=== PATIENT | female | born 1945 | race Caucasian/White ===

== ENCOUNTER 2016-12-26 12:48 | Emergency (ER) | payer MEDICARE, OTHER ==
[2016-12-26] MEDS ORDERED: IPRATROPIUM-ALBUTEROL 3 ML NEB INHALATION STA (13:28)
--- NOTE | 2016-12-26 13:32 | ED ---
General Adult HPI - General Chief complaint: Shortness of Breath Stated complaint: Asthma Attack Time Seen by Provider: 12/26/16 13:16 Source: patient, RN notes reviewed, old records reviewed Mode of arrival: ambulatory Limitations: no limitations - History of Present Illness Initial comments: Chief complaint and history of present illness a 71-year-old female with complaint of asthma attack. Ongoing for several days. She ran out of her medications recently. Denies a fever productive cough. No chest pain. - Related Data Home Medications Medication Instructions Recorded Confirmed Albuterol Inhaler [Ventolin Hfa 2 puff INHALATION RT-Q6H PRN 08/28/15 12/26/16 Inhaler] Budesonide-Formot 160-4.5 Mcg 2 puff INHALATION RT-BID 08/28/15 12/26/16 [Symbicort 160-4.5 Mcg Inhaler] Albuterol Nebulized [Ventolin 2.5 mg INHALATION RT-Q4H PRN 12/26/16 12/26/16 Nebulized] Fexofenadine HCl [Children's 60 mg PO DAILY PRN 12/26/16 12/26/16 Valeria Susp] Multivitamin [Multivitamins Adult 1 tab PO DAILY 12/26/16 12/26/16 Gummies] Previous Rx's Medication Instructions Recorded Albuterol Inhaler [Ventolin Hfa 1 - 2 puff INHALATION Q6HR PRN #1 12/26/16 Inhaler] inhaler Budesonide/Formoterol Fumarate 2 puff INHALATION BID #1 inhaler 12/26/16 [Symbicort 80-4.5 Mcg Inhaler] Lisinopril [Zestril] 5 mg PO DAILY #60 tab 12/26/16 Allergies Allergy/AdvReac Type Severity Reaction Status Date / Time No Known Allergies Allergy Verified 12/26/16 13:35 Review of Systems ROS Statement: Those systems with pertinent positive or pertinent negative responses have been documented in the HPI. Review of systems. No visual acuity changes no complaint headache no chest pain she has slight wheeze. Occasionally short of breath. No cough. Abdominal pain no nausea no vomiting no neuro deficits. All systems are reviewed. Past medical problems significant for asthmaCOPD, hypertension and seasonal ALLERGIES. Patient reports her current seasonal ALLERGIES or bilaterally. She does take Valeria which does help quite a bit. Patient denies any surgeries. Family history does not include any cancers. Patient has ALLERGIES to seasonal things. Denies smoking denies drinking. ROS Other: All systems not noted in ROS Statement are negative. Past Medical History Past Medical History: Asthma, COPD, Hypertension Additional Past Medical History / Comment(s): seasonal allergies. History of Any Multi-Drug Resistant Organisms: None Reported Past Surgical History: No Surgical Hx Reported Past Psychological History: No Psychological Hx Reported Smoking Status: Never smoker Past Alcohol Use History: None Reported Past Drug Use History: None Reported General Exam - General Exam Comments Initial Comments: General: The patient is awake and alert, in no distress, and does not appear acutely ill. Chief complain of asthma symptoms. Vital signs are temperature 90.1 pulse 96 respiratory rate 20 pulse ox 95% room air blood pressure 202/95. This be rechecked and treated. Eye: Pupils are equal, round and reactive to light, extra-ocular movements are intact ; there is normal conjunctiva bilaterally. No signs of icterus. Ears, nose, mouth and throat: There are moist mucous membranes and no oral lesions. Neck: The neck is supple, there is no tenderness , no anterior cervical lymphadenopathy, thyroid not enlarged.. Cardiovascular: There is a regular rate and rhythm. No murmur, rub or gallop is appreciated. Respiratory: Lungs are clear to auscultation, respirations 18 wheeze on forced expiration. Gastrointestinal: Soft, non-distended, non-tender abdomen without masses or organomegaly noted. There is no rebound or guarding present. No CVA tenderness. Back: There is no tenderness to palpation in the midline. There is no obvious deformity. Musculoskeletal: Normal ROM, no tenderness, There is no pedal edema. There is no calf tenderness or swelling. Sensation intact. Neurological: No complaint of any neuro deficits. Skin: Skin is warm and dry and no rashes or lesions are noted. Limitations: no limitations Course Vital Signs 12/26/16 12/26/16 12/26/16 12:57 13:58 14:29 Temperature 98.1 F Pulse Rate 96 76 68 Respiratory 20 18 Rate Blood Pressure 202/95 201/88 O2 Sat by Pulse 95 97 Oximetry 12/26/16 14:41 Temperature Pulse Rate 72 Respiratory Rate Blood Pressure O2 Sat by Pulse Oximetry Medical Decision Making - Medical Decision Making Patient was advised to contact her family physician and to restart her blood pressure medications which she said she since stopped. She'll also be given a prescription for albuterol and Symbicort. Patient also received prescription for a Medrol Dosepak. She blood pressure on recheck was still elevated. She received Catapres 0.1 by mouth. The patient reports she felt better after updraft and a blood pressure did come down to approximately 180/70. The patient will be given a prescription for lisinopril 5 mg 1 daily and strongly advised to call follow-up with family physician within the next week. Disposition Clinical Impression: Asthma, Hypertension Disposition: HOME SELF-CARE Condition: Fair Instructions: Asthma (ED), Hypertension (ED) Additional Instructions: Follow-up with your family physician. Take your medications we are asthma as directed. Take lisinopril 1 tablet daily. Gets her blood pressure checked frequently over the next week and then follow-up. Return emergency room as needed Prescriptions: Albuterol Inhaler [Ventolin Hfa Inhaler] 1 - 2 puff INHALATION Q6HR PRN #1 inhaler PRN Reason: Short of breath Budesonide/Formoterol Fumarate [Symbicort 80-4.5 Mcg Inhaler] 2 puff INHALATION BID #1 inhaler Lisinopril [Zestril] 5 mg PO DAILY #60 tab Time of Disposition: 14:57
[2016-12-26 14:00] VITALS: RESP 18
[2016-12-26] MEDS ORDERED: cloNIDine HCL 0.2 MG TAB PO STA (14:05)
[2016-12-26] MEDS: cloNIDine HCL 0.1 MG TAB PO STA ×2 (14:06→14:49)
[2016-12-26] MEDS ORDERED: cloNIDine HCL 0.1 MG TAB PO STA (14:49)
[2016-12-26 16:24] VITALS: BP 153/70; PULSE 74
[2016-12-26 17:03] VITALS: TEMP 97.9
== END 2016-12-26 16:24 | disposition home or self-care (01) ==
LOC: EC 12:48
DX: J45.909 Unspecified asthma, uncomplicated (principal); I10 Essential (primary) hypertension; J44.9 Chronic obstructive pulmonary disease, unspecified; Z79.51 Long term (current) use of inhaled steroids; Z79.899 Other long term (current) drug therapy
CPT/HCPCS: 94640; 99285

== ENCOUNTER 2017-01-03 21:25 | Emergency (ER) | payer MEDICARE, OTHER ==
[2017-01-03] MEDS ORDERED: IPRATROPIUM-ALBUTEROL 3 ML NEB INHALATION STA (21:59)
[2017-01-03] MEDS ORDERED: methylPREDNISolone SOD SUCCI 125 MG/2 ML VIAL IV STA (22:13)
[2017-01-03] MEDS ORDERED: SODIUM CHLORIDE 0.9% 1,000 ML IV STA (22:13)
[2017-01-03 22:20] LABS: CH 29.3; CHCM 33.8; HCT 38.2 % (34.0-46.0); HDW 2.42; MCH 29.6 pg (25.0-35.0); MCHC 34.1 g/dL (31.0-37.0); MCV 86.9 fL (80.0-100.0); Mean Platelet Volume 6.9; RDW 13.1 % (11.5-15.5); WBC 6.1 k/uL (3.8-10.6)
[2017-01-03] MEDS ORDERED: ASPIRIN 81 MG CHEW PO STA (22:23)
[2017-01-03] MEDS ORDERED: NITROGLYCERIN OINT 1 INCH/GM PACKET TOPICAL STA (22:23)
--- NOTE | 2017-01-03 22:23 | ED ---
SOB HPI - General Source: patient Mode of arrival: ambulatory Limitations: no limitations <Benyn Morris - Last Filed: 01/04/17 00:51> <Benny Burden - Last Filed: 01/04/17 01:48> - General Chief Complaint: Shortness of Breath Stated Complaint: Asthma Time Seen by Provider: 01/03/17 21:49 - History of Present Illness Initial Comments: This 71-year-old white female presents with a complaint of shortness of breath. This is been present for approximately 8 days. She states that she has asthma as well as COPD. She was seen in the ER approximate days ago states that her symptoms have not gotten much better. She has had some wheezing as well as a cough with whitish production. She denies any actual fever. She does complain of some chest pain which is more of a pressure tightness in the midsternal region. She denies any tobacco usage. She informs the nurse that she never got her medications filled from her visit to the ER 8 days ago. No other complaints or modifying factors. (Benny Morris) - Related Data Home Medications Medication Instructions Recorded Confirmed Albuterol Nebulized [Ventolin 2.5 mg INHALATION RT-Q4H PRN 12/26/16 01/03/17 Nebulized] Albuterol Inhaler [Ventolin Hfa 1 - 2 puff INHALATION RT-Q6H PRN 01/03/17 Inhaler] Budesonide/Formoterol Fumarate 2 puff INHALATION RT-BID 01/03/17 01/03/17 [Symbicort 80-4.5 Mcg Inhaler] Previous Rx's Medication Instructions Recorded Lisinopril [Zestril] 5 mg PO DAILY #60 tab 12/26/16 predniSONE 20 mg PO BID #10 tab 01/04/17 Allergies Allergy/AdvReac Type Severity Reaction Status Date / Time red dye Allergy Unknown Verified 01/03/17 22:51 Review of Systems ROS Other: All systems not noted in ROS Statement are negative. <Benny Morris - Last Filed: 01/04/17 00:51> ROS Other: All systems not noted in ROS Statement are negative. <Benny Burden - Last Filed: 01/04/17 01:48> ROS Statement: Those systems with pertinent positive or pertinent negative responses have been documented in the HPI. Past Medical History Past Medical History: Asthma, COPD, Hypertension Additional Past Medical History / Comment(s): seasonal allergies. History of Any Multi-Drug Resistant Organisms: None Reported Past Surgical History: No Surgical Hx Reported Past Psychological History: No Psychological Hx Reported Smoking Status: Never smoker Past Alcohol Use History: None Reported Past Drug Use History: None Reported <Benny Morris - Last Filed: 01/04/17 00:51> General Exam Limitations: no limitations <Benny Morris - Last Filed: 01/04/17 00:51> <Benny Burden - Last Filed: 01/04/17 01:48> - General Exam Comments Initial Comments: GENERAL: The patient is well nourished and well hydrated. VITAL SIGNS: Heart rate, blood pressure, respiratory rate reviewed as recorded in nurse's notes. EYES: Pupils are round and reactive. Extraocular movements are intact. No conjunctival / lid redness or swelling. ENT: No external evidence of injury, swelling, or ecchymosis. Airway is patent. Throat is clear. NECK: Nontender. No swelling or evidence of injury. No subcutaneous emphysema. Trachea is midline. No thyroid mass. HEART: Regular rate and rhythm. Good peripheral pulses. LUNGS/CHEST: There is wheezing noted to the bilateral chest. No ecchymosis, subcutaneous emphysema, or tenderness. ABDOMEN: Abdomen soft without tenderness. No palpable masses or organomegaly. No peritoneal signs. No abdominal wall swelling or ecchymosis. EXTREMITIES: No extremity tenderness. Normal muscle tone and function. No thoracolumbar tenderness. NEUROLOGIC: Sensation is grossly intact. Cranial nerve exam reveals face is symmetrical, tongue is midline, speech is clear. SKIN: No abrasions or ecchymosis is noted. No induration or masses noted. PSYCHIATRIC: Alert and oriented. Appropriate behavior and judgment. (Benny Morris) Course <Benny Morris - Last Filed: 01/04/17 00:51> <Benny Burden - Last Filed: 01/04/17 01:48> Vital Signs 01/03/17 01/03/17 01/03/17 21:39 22:08 22:19 Temperature 98.3 F Pulse Rate 81 86 94 Respiratory 24 Rate Blood Pressure 131/97 O2 Sat by Pulse 95 Oximetry 01/03/17 01/03/17 01/03/17 22:36 23:10 23:40 Temperature Pulse Rate 75 95 76 Respiratory 20 18 18 Rate Blood Pressure 200/87 189/88 179/87 O2 Sat by Pulse 97 95 95 Oximetry 01/04/17 01/04/17 01/04/17 00:10 00:40 01:17 Temperature 97.5 F L Pulse Rate 76 78 84 Respiratory 18 18 18 Rate Blood Pressure 190/87 192/89 194/85 O2 Sat by Pulse 95 95 95 Oximetry - Reevaluation(s) Reevaluation #1: 01/04/17 01:45 I did discuss findings with the patient. I did recommend admission the patient is refusing at this time she states she is now a lot better and does have medication home. She will be discharged however and follow-up with her doctor return when necessary she states she does not have albuterol for her nebulizer I will write for some for her. Patient has agreed to accept all responsibility. 01/04/17 01:47 (Benny Burden) Medical Decision Making - Lab Data Result diagrams: 01/03/17 22:10 01/03/17 22:10 <Benny Morris - Last Filed: 01/04/17 00:51> - Lab Data Result diagrams: 01/03/17 22:10 01/03/17 22:10 - Radiology Data Radiology results: report reviewed (I did review the imaging and reports no acute findings no pulmonary emboli seen. There is a questionable a 6 mm left lower lobe nodular density), image reviewed <Benny Burden - Last Filed: 01/04/17 01:48> - Medical Decision Making The patient was seen and examined. All diagnostics were reviewed. The EKG shows a normal sinus rhythm at a rate of 84. There is no acute ST-T wave changes identified. The [place] interval is 146, QS duration is 80, and the QTc interval is 479. The chest x-ray did not show any acute processes. She did receive DuoNeb breathing treatment as well as some Solu-Medrol and aspirin and Nitropaste. The d-dimer was elevated and therefore a CT angiogram of the chest was ordered to rule out pulmonary embolism. Her blood pressure was fairly elevated and some labetalol is ordered. She refused to take the labetalol but was agreeable to take her own medication of lisinopril. (Benny Morris) - Lab Data Lab Results 01/03/17 01/03/17 01/03/17 Range/Units 22:10 22:10 22:10 WBC 6.1 (3.8-10.6) k/uL RBC 4.40 (3.80-5.40) m/uL Hgb 13.0 (11.4-16.0) gm/dL Hct 38.2 (34.0-46.0) % MCV 86.9 (80.0-100.0) fL MCH 29.6 (25.0-35.0) pg MCHC 34.1 (31.0-37.0) g/dL RDW 13.1 (11.5-15.5) % Plt Count 242 (150-450) k/uL PT (9.0-12.0) sec INR (<1.1) APTT (22.0-30.0) sec D-Dimer (<0.60) mg/L FEU Sodium 140 (137-145) mmol/L Potassium 4.0 (3.5-5.1) mmol/L Chloride 104 (98-107) mmol/L Carbon Dioxide 27 (22-30) mmol/L Anion Gap 9 mmol/L BUN 15 (7-17) mg/dL Creatinine 0.68 (0.52-1.04) mg/dL Est GFR (MDRD) Af Amer >60 (>60 ml/min/1.73 sqM) Est GFR (MDRD) Non-Af >60 (>60 ml/min/1.73 sqM) Glucose 104 H (74-99) mg/dL Calcium 9.6 (8.4-10.2) mg/dL Magnesium 2.1 (1.6-2.3) mg/dL Total Bilirubin 0.5 (0.2-1.3) mg/dL AST 25 (14-36) U/L ALT 31 (9-52) U/L Alkaline Phosphatase 57 (38-126) U/L Total Creatine Kinase 136 H (30-135) U/L CK-MB (CK-2) 1.2 (0.0-2.4) ng/mL CK-MB (CK-2) Rel Index 0.9 Troponin I <0.012 (0.000-0.034) ng/mL Total Protein 7.7 (6.3-8.2) g/dL Albumin 4.3 (3.5-5.0) g/dL 01/03/17 Range/Units 22:10 WBC (3.8-10.6) k/uL RBC (3.80-5.40) m/uL Hgb (11.4-16.0) gm/dL Hct (34.0-46.0) % MCV (80.0-100.0) fL MCH (25.0-35.0) pg MCHC (31.0-37.0) g/dL RDW (11.5-15.5) % Plt Count (150-450) k/uL PT 9.7 (9.0-12.0) sec INR 0.9 (<1.1) APTT 25.3 (22.0-30.0) sec D-Dimer 1.13 H (<0.60) mg/L FEU Sodium (137-145) mmol/L Potassium (3.5-5.1) mmol/L Chloride (98-107) mmol/L Carbon Dioxide (22-30) mmol/L Anion Gap mmol/L BUN (7-17) mg/dL Creatinine (0.52-1.04) mg/dL Est GFR (MDRD) Af Amer (>60 ml/min/1.73 sqM) Est GFR (MDRD) Non-Af (>60 ml/min/1.73 sqM) Glucose (74-99) mg/dL Calcium (8.4-10.2) mg/dL Magnesium (1.6-2.3) mg/dL Total Bilirubin (0.2-1.3) mg/dL AST (14-36) U/L ALT (9-52) U/L Alkaline Phosphatase (38-126) U/L Total Creatine Kinase (30-135) U/L CK-MB (CK-2) (0.0-2.4) ng/mL CK-MB (CK-2) Rel Index Troponin I (0.000-0.034) ng/mL Total Protein (6.3-8.2) g/dL Albumin (3.5-5.0) g/dL Disposition <Benny Morris - Last Filed: 01/04/17 00:51> <Benny Burden - Last Filed: 01/04/17 01:48> Clinical Impression: Hypertension, Asthma with exacerbation, COPD (chronic obstructive pulmonary disease), Chest pain, Elevated d-dimer, Acute exacerbation of chronic obstructive airways disease Disposition: HOME SELF-CARE Condition: Good Prescriptions: predniSONE 20 mg PO BID #10 tab Referrals: Roshan Solis MD [Primary Care Provider] - 1-2 days
[2017-01-03 22:36] LABS: ALT 31 U/L (9-52); AST 25 U/L (14-36); Alkaline Phosphatase 57 U/L (38-126); Anion Gap 9 mmol/L; Blood Urea Nitrogen 15 mg/dL (7-17); Calcium 9.6 mg/dL (8.4-10.2); Carbon Dioxide 27 mmol/L (22-30); Chloride 104 mmol/L (98-107); Glucose 104 mg/dL (74-99); Magnesium 2.1 mg/dL (1.6-2.3); Non-African American GFR(MDRD) >60 (>60 ml/min/1.73 sqM); Sodium 140 mmol/L (137-145); Total Bilirubin 0.5 mg/dL (0.2-1.3); Total Protein 7.7 g/dL (6.3-8.2)
[2017-01-03] MEDS: LABETALOL 5 MG/ML VIAL MDV IVP STA (22:46)
[2017-01-03 23:26] VITALS: RESP 18
--- NOTE | 2017-01-03 23:33 | XR ---
EXAMINATION TYPE: XR chest 2V DATE OF EXAM: 01/03/2017 10:42 PM COMPARISON: 10/27/2015 HISTORY: COPD. Short of breath. TECHNIQUE: Frontal and lateral views of the chest are obtained. FINDINGS: Heart and mediastinum are normal. Lungs are clear. Diaphragm is normal. There are chest le ads. Bony thorax is intact. IMPRESSION: Normal chest. No change.
[2017-01-04 00:02] LABS: Creatine Kinase 136 U/L (30-135)
[2017-01-04 00:13] LABS: INR 0.9 (<1.1); Partial Thromboplastin Time 25.3 sec (22.0-30.0); Prothrombin Time 9.7 sec (9.0-12.0)
[2017-01-04 00:15] LABS: Creatine Kinase MB 1.2 ng/mL (0.0-2.4); Troponin I <0.012 ng/mL (0.000-0.034)
[2017-01-04] MEDS ORDERED: RX INFO: IV CONTRAST WAS GIVEN 1 EACH MISC MISCELLANE PRN (00:17)
--- NOTE | 2017-01-04 01:21 | CT ---
EXAM: CT Angiography Chest With Intravenous Contrast. CLINICAL HISTORY: Reason: Pain TECHNIQUE: Axial computed tomographic angiography images of the chest with intravenous contrast using pulmonary embolism protocol. CTDI is 11.2 mGy and DLP is 446.80 mGy-cm This CT exam was performed using one or more of the following dose reduction techniques: automated exposure control, adjustment of the mA and/or kV according to patient size, and/or use of iterative reconstruction technique. MIP reconstructed images were created and reviewed. Coronal and sagittal reformatted images were created and reviewed. COMPARISON: Chest x-ray of same date FINDINGS: Pulmonary arteries: 1. No evidence of pulmonary embolus. Aorta: No acute findings. No thoracic aortic aneurysm. Lungs: Focal groundglass opacity within the right lower lobe. 6 mm left lower lobe nodular density. Pleural spaces: Unremarkable. No significant effusion. No pneumothorax. Heart: Unremarkable. No cardiomegaly. No significant pericardial effusion. No evidence of RV dysfunction. Bones: Unremarkable. No acute fracture. Lymph nodes: Unremarkable. No enlarged lymph nodes. IMPRESSION: 1. No evidence of pulmonary embolus. 2. Focal groundglass opacity within the right lower lobe, with primary differential considerations of atelectasis or recent pneumonia. 3. 6 mm left lower lobe nodular density. In a high risk patient, a six- month follow-up examination would be appropriate. In a low risk patient, a 12 month follow-up examination would be appropriate.
[2017-01-04] MEDS: LABETALOL 5 MG/ML VIAL MDV IVP STA (02:13)
[2017-01-04 02:15] VITALS: BP 177/83; PULSE 83; TEMP 97.6
== END 2017-01-04 02:14 | disposition home or self-care (01) ==
LOC: EC 21:25
DX: J44.1 Chronic obstructive pulmonary disease with (acute) exacerbation (principal); J45.901 Unspecified asthma with (acute) exacerbation; I10 Essential (primary) hypertension; R79.1 Abnormal coagulation profile; Z79.51 Long term (current) use of inhaled steroids; Z91.048 Other nonmedicinal substance allergy status
CPT/HCPCS: 36415; 94640; 93005; 85379; 80053; 82550; 82553; 83735; 84484; 85027; 85610; 85730; 87040; 71020; 71275; 99285; 96374; 96361 ×4; J2930; Q9967

== ENCOUNTER 2017-03-04 10:28 | Emergency (ER) | payer MEDICARE, OTHER ==
[2017-03-04] MEDS ORDERED: SODIUM CHLORIDE 0.9% 1,000 ML IV STA (11:01)
[2017-03-04] MEDS ORDERED: IPRATROPIUM-ALBUTEROL 3 ML NEB INHALATION STA (11:01)
[2017-03-04] MEDS ORDERED: LISINOPRIL 5 MG TAB PO STA (11:02)
--- NOTE | 2017-03-04 11:04 | ED ---
General Adult HPI - General Chief complaint: Shortness of Breath Stated complaint: htn, SOB Time Seen by Provider: 03/04/17 10:43 Source: patient, RN notes reviewed Mode of arrival: ambulatory Limitations: no limitations - History of Present Illness Initial comments: Patient is a pleasant 71-year-old female presenting to the emergency Department with complaints of chest congestion. Symptoms have been present for the patient has cough with white sputum. Patient has had some similar problems previously associated with asthma. Patient did have discomfort under her right rib a day or so ago which is somewhat chronic for her. Patient did not take her blood pressure medicine this morning and also feels that her blood pressure was high. - Related Data Home Medications Medication Instructions Recorded Confirmed Albuterol Nebulized [Ventolin 2.5 mg INHALATION RT-Q4H PRN 12/26/16 03/04/17 Nebulized] Albuterol Inhaler [Ventolin Hfa 1 - 2 puff INHALATION RT-Q6H PRN 01/03/17 Inhaler] Budesonide/Formoterol Fumarate 2 puff INHALATION RT-BID 01/03/17 03/04/17 [Symbicort 80-4.5 Mcg Inhaler] Previous Rx's Medication Instructions Recorded Lisinopril [Zestril] 5 mg PO DAILY #60 tab 12/26/16 Allergies Allergy/AdvReac Type Severity Reaction Status Date / Time red dye Allergy Unknown Verified 03/04/17 10:38 [employer] AdvReac NAUSEA/DIAR Uncoded 03/04/17 11:08 TORIBIO/COUGHI NG Review of Systems ROS Statement: Those systems with pertinent positive or pertinent negative responses have been documented in the HPI. ROS Other: All systems not noted in ROS Statement are negative. Constitutional: Denies: fever, chills Eyes: Denies: eye pain ENT: Reports: congestion. Denies: ear pain Respiratory: Reports: cough, dyspnea Cardiovascular: Denies: palpitations Endocrine: Denies: fatigue Gastrointestinal: Denies: abdominal pain Genitourinary: Denies: urgency Musculoskeletal: Denies: back pain Skin: Reports: rash (Bug bite left ankle) Past Medical History Past Medical History: Asthma, COPD, GERD/Reflux, Hypertension Additional Past Medical History / Comment(s): seasonal allergies. History of Any Multi-Drug Resistant Organisms: None Reported Past Surgical History: No Surgical Hx Reported Past Psychological History: No Psychological Hx Reported Smoking Status: Never smoker Past Alcohol Use History: None Reported Past Drug Use History: None Reported General Exam Limitations: no limitations General appearance: alert, in no apparent distress Head exam: Present: atraumatic Eye exam: Present: normal appearance, PERRL ENT exam: Present: normal oropharynx Neck exam: Present: normal inspection Respiratory exam: Present: wheezes (Mild expiratory), decreased breath sounds Cardiovascular Exam: Present: regular rate, normal rhythm Expanded Peripheral pulses: 2+: Radial (R), Radial (L), Dorsalis Pedis (R), Dorsalis Pedis (L) GI/Abdominal exam: Present: soft. Absent: tenderness Extremities exam: Present: full ROM, other (Small papule left ankle with minimal swelling). Absent: tenderness, calf tenderness Neurological exam: Present: alert Psychiatric exam: Present: normal affect, normal mood Skin exam: Present: other (Small papule left lateral ankle were patient states recent bug bite) Course Vital Signs 03/04/17 03/04/17 03/04/17 10:31 10:50 11:12 Temperature 98.8 F Pulse Rate 84 69 66 Respiratory 16 16 Rate Blood Pressure 223/100 168/74 O2 Sat by Pulse 94 L 98 Oximetry 03/04/17 03/04/17 03/04/17 13:07 13:19 14:40 Temperature 97.9 F Pulse Rate 70 70 75 Respiratory 16 16 16 Rate Blood Pressure 156/73 147/82 148/69 O2 Sat by Pulse 97 97 95 Oximetry EKG Findings - EKG Comments: EKG Findings:: Sinus rhythm 71. AK 1:30. QRS 80. QT 412. QTC 447. Normal axis. Normal QRS. Normal ST-T. Medical Decision Making - Medical Decision Making Patient reevaluated and resting comfortably in bed. Patient updated on plan for admission and he'll testing and repeat cardiac enzymes. Patient was explained concerns regarding elevated d-dimer and inconclusive computed tomography scan. Despite this patient refuses admission. Patient states she has chronic asthma and feels her symptoms are more likely to that. Patient states she has been worked up for blood clot in the past with no evidence of blood clot. Patient is made aware that if blood clot was present this could be potentially life-threatening. Despite this patient will leave AGAINST MEDICAL ADVICE. Patient does them straight medical decision making. - Lab Data Result diagrams: 03/04/17 10:46 03/04/17 10:46 Lab Results 03/04/17 03/04/17 03/04/17 Range/Units 10:46 10:46 10:46 WBC 7.3 (3.8-10.6) k/uL RBC 4.27 (3.80-5.40) m/uL Hgb 12.4 (11.4-16.0) gm/dL Hct 37.8 (34.0-46.0) % MCV 88.4 (80.0-100.0) fL MCH 29.0 (25.0-35.0) pg MCHC 32.7 (31.0-37.0) g/dL RDW 13.7 (11.5-15.5) % Plt Count 254 (150-450) k/uL Neutrophils % 66 % Lymphocytes % 24 % Monocytes % 6 % Eosinophils % 2 % Basophils % 1 % Neutrophils # 4.8 (1.3-7.7) k/uL Lymphocytes # 1.8 (1.0-4.8) k/uL Monocytes # 0.4 (0-1.0) k/uL Eosinophils # 0.1 (0-0.7) k/uL Basophils # 0.0 (0-0.2) k/uL PT (9.0-12.0) sec INR (<1.1) APTT (22.0-30.0) sec D-Dimer (<0.60) mg/L FEU Sodium 141 (137-145) mmol/L Potassium 4.1 (3.5-5.1) mmol/L Chloride 104 (98-107) mmol/L Carbon Dioxide 26 (22-30) mmol/L Anion Gap 11 mmol/L BUN 18 H (7-17) mg/dL Creatinine 0.73 (0.52-1.04) mg/dL Est GFR (MDRD) Af Amer >60 (>60 ml/min/1.73 sqM) Est GFR (MDRD) Non-Af >60 (>60 ml/min/1.73 sqM) Glucose 95 (74-99) mg/dL Calcium 9.3 (8.4-10.2) mg/dL Total Bilirubin 0.4 (0.2-1.3) mg/dL AST 24 (14-36) U/L ALT 41 (9-52) U/L Alkaline Phosphatase 50 (38-126) U/L Total Creatine Kinase 219 H (30-135) U/L CK-MB (CK-2) 1.7 (0.0-2.4) ng/mL CK-MB (CK-2) Rel Index 0.8 Troponin I <0.012 (0.000-0.034) ng/mL NT-Pro-B Natriuret Pep pg/mL Total Protein 7.2 (6.3-8.2) g/dL Albumin 4.1 (3.5-5.0) g/dL 03/04/17 03/04/17 Range/Units 10:46 10:46 WBC (3.8-10.6) k/uL RBC (3.80-5.40) m/uL Hgb (11.4-16.0) gm/dL Hct (34.0-46.0) % MCV (80.0-100.0) fL MCH (25.0-35.0) pg MCHC (31.0-37.0) g/dL RDW (11.5-15.5) % Plt Count (150-450) k/uL Neutrophils % % Lymphocytes % % Monocytes % % Eosinophils % % Basophils % % Neutrophils # (1.3-7.7) k/uL Lymphocytes # (1.0-4.8) k/uL Monocytes # (0-1.0) k/uL Eosinophils # (0-0.7) k/uL Basophils # (0-0.2) k/uL PT 9.7 (9.0-12.0) sec INR 0.9 (<1.1) APTT 23.8 (22.0-30.0) sec D-Dimer 1.02 H (<0.60) mg/L FEU Sodium (137-145) mmol/L Potassium (3.5-5.1) mmol/L Chloride (98-107) mmol/L Carbon Dioxide (22-30) mmol/L Anion Gap mmol/L BUN (7-17) mg/dL Creatinine (0.52-1.04) mg/dL Est GFR (MDRD) Af Amer (>60 ml/min/1.73 sqM) Est GFR (MDRD) Non-Af (>60 ml/min/1.73 sqM) Glucose (74-99) mg/dL Calcium (8.4-10.2) mg/dL Total Bilirubin (0.2-1.3) mg/dL AST (14-36) U/L ALT (9-52) U/L Alkaline Phosphatase (38-126) U/L Total Creatine Kinase (30-135) U/L CK-MB (CK-2) (0.0-2.4) ng/mL CK-MB (CK-2) Rel Index Troponin I (0.000-0.034) ng/mL NT-Pro-B Natriuret Pep 131 pg/mL Total Protein (6.3-8.2) g/dL Albumin (3.5-5.0) g/dL - Radiology Data Radiology results: report reviewed (Computed tomography scan of the chest is limited due to artifact. Cannot exclude embolism.), image reviewed (Chest x- ray shows tiny effusion or pleural thickening with changes of COPD.) Disposition Clinical Impression: Dyspnea Disposition: Left Against Medical Advice Instructions: Dyspnea (ED) Additional Instructions: Please follow-up with your doctor Tuesday. Please also follow-up with pulmonary doctor is planned. Return for difficulty breathing, pain, fevers, weakness, worsening symptoms or other concerns. You are leaving AGAINST MEDICAL ADVICE. Referrals: Roshan Solis MD [Primary Care Provider] - 1-2 days
[2017-03-04 11:30] LABS: Basophils % (A) 1 %; CHCM 32.9; Eosinophils # (A) 0.1 k/uL (0-0.7); Eosinophils % (A) 2 %; HCT 37.8 % (34.0-46.0); HDW 2.21; HGB 12.4 gm/dL (11.4-16.0); Luc # (Auto) 0.13; Luc % (Auto) 2; Lymphocytes # (A) 1.8 k/uL (1.0-4.8); Lymphocytes % (A) 24 %; MCHC 32.7 g/dL (31.0-37.0); MCV 88.4 fL (80.0-100.0); Mean Platelet Volume 7.5; Monocytes # (A) 0.4 k/uL (0-1.0); Monocytes % (A) 6 %; Neutrophils # (A) 4.8 k/uL (1.3-7.7); Neutrophils % (A) 66 %; RBC 4.27 m/uL (3.80-5.40); RDW 13.7 % (11.5-15.5); WBC 7.3 k/uL (3.8-10.6); WBC (Perox) 7.11
[2017-03-04 11:37] LABS: ALT 41 U/L (9-52); AST 24 U/L (14-36); Alkaline Phosphatase 50 U/L (38-126); Anion Gap 11 mmol/L; Blood Urea Nitrogen 18 mg/dL (7-17); Calcium 9.3 mg/dL (8.4-10.2); Carbon Dioxide 26 mmol/L (22-30); Chloride 104 mmol/L (98-107); Glucose 95 mg/dL (74-99); Non-African American GFR(MDRD) >60 (>60 ml/min/1.73 sqM); Potassium 4.1 mmol/L (3.5-5.1); Sodium 141 mmol/L (137-145); Total Bilirubin 0.4 mg/dL (0.2-1.3); Total Protein 7.2 g/dL (6.3-8.2)
[2017-03-04 11:39] LABS: INR 0.9 (<1.1); Partial Thromboplastin Time 23.8 sec (22.0-30.0); Prothrombin Time 9.7 sec (9.0-12.0)
--- NOTE | 2017-03-04 11:40 | XR ---
EXAMINATION TYPE: XR chest 2V DATE OF EXAM: 03/04/2017 COMPARISON: 01/04/2017 TECHNIQUE: PA and lateral views submitted. HISTORY: Fecal debris FINDINGS: Blunting of the right costophrenic angle. Hyperinflation noted. Apical pleural thickening. No overt f ailure. Hypertrophic change of the spine. No consolidative pneumonia. IMPRESSION: 1. Tiny pleural effusion on the right or pleural thickening with changes of COPD. Nodularity seen by recent CT scan not as well identified by x-ray.
[2017-03-04 11:46] LABS: Creatine Kinase 219 U/L (30-135)
[2017-03-04 12:00] LABS: Creatine Kinase MB 1.7 ng/mL (0.0-2.4); Troponin I <0.012 ng/mL (0.000-0.034)
[2017-03-04] MEDS ORDERED: RX INFO: IV CONTRAST WAS GIVEN 1 EACH MISC MISCELLANE PRN (12:03)
--- NOTE | 2017-03-04 13:02 | CT ---
EXAMINATION TYPE: CT angio chest DATE OF EXAM: 03/04/2017 12:42 PM COMPARISON: 01/04/2017 HISTORY: SOB CT DLP: 618 mGycm Automated exposure control for dose reduction was used. CONTRAST: CTA scan of the thorax is performed with IV Contrast, patient injected with 71 mL of Omnipaque 350, p ulmonary embolism protocol. . FINDINGS: LUNGS: Groundglass changes are seen which may be on the basis of atelectasis. There are stable multip le subpleural areas of nodularity measuring less than a centimeter. The largest within the left lower lobe measuring 6 mm. MEDIASTINUM: There is suboptimal enhancement pulmonary arteries cannot exclude a secondary branch lef t-sided pulmonary embolism. Aorta of normal caliber atherosclerotic change aorta is seen. OTHER: There is a deformity of the sternum suggestive of previous trauma correlate clinically. Degen erative change of the spine noted. IMPRESSION: 1. Limited exam due to artifact. Given the limitations of the exam cannot exclude a secondary branch pulmonary embolism on the left. Suggestion of a filling defect. Correlate clinically. 2. Deformity of the sternum may be related to significant motion limited PE exam rather than sternal fracture or previous fracture. Correlate clinically. 3. Stable subpleural nodularity.
[2017-03-04 15:47] VITALS: BP 134/65; PULSE 68; RESP 18; TEMP 97.7
== END 2017-03-04 15:47 | disposition left against medical advice (07) ==
LOC: EC 10:28
DX: R06.00 Dyspnea, unspecified (principal); R05 Cough; J45.909 Unspecified asthma, uncomplicated; I10 Essential (primary) hypertension; J44.9 Chronic obstructive pulmonary disease, unspecified; Z53.29 Procedure and treatment not carried out because of patient's decision for other reasons; Z91.048 Other nonmedicinal substance allergy status; Z79.51 Long term (current) use of inhaled steroids
CPT/HCPCS: 99285; 96360; 96361 ×4; 36415; 94640; 93005; 85379; 83880; 80053; 82550; 82553; 84484; 85025; 85610; 85730; 71020; 71275; Q9967

== ENCOUNTER 2017-05-05 17:00 | Inpatient (IN) | payer MEDICARE, OTHER ==
[2017-05-05] MEDS ORDERED: IPRATROPIUM-ALBUTEROL 3 ML NEB INHALATION STA (17:35)
[2017-05-05] MEDS ORDERED: methylPREDNISolone SOD SUCCI 125 MG/2 ML VIAL IV STA (17:35)
[2017-05-05] MEDS ORDERED: RX INFO: IV CONTRAST WAS GIVEN 1 EACH MISC MISCELLANE PRN (17:36)
--- NOTE | 2017-05-05 17:39 | ED ---
SOB HPI - General Chief Complaint: Shortness of Breath Stated Complaint: SOB Source: patient Mode of arrival: ambulatory Limitations: no limitations - History of Present Illness Initial Comments: Patient is a 71-year-old female who presents for evaluation for cough and shortness of breath which is chronic in nature. Past medical history as below. Patient has a known history of COPD. She has not been taking her inhalers that she ran out. She saw her PCP today who was concerned about possible pulmonary embolism. She had a negative CTA of her chest about 2 months ago. No history of DVT or pulmonary embolism. No recent long distance travel. She is a somewhat poor historian. She has been coughing a little bit more than usual. States that she'll have a white phlegm. No chest pain. However, the patient did state that she had some numbness down her left arm about 2 days ago. She describes having orthopnea. Has to sit upright to breathe. She does not wear home oxygen. She does not have a calender wind up tender which she follows with. Admits to exertional dyspnea. Has been going to urgent cares for her symptoms. Blood pressure also noted to be quite elevated. She takes 10 mg lisinopril which was recently increased. Does not take any other agents. Currently denies fevers, headaches, URI symptoms, chest pain, nausea, vomiting, diarrhea, pain or burning with urination. - Related Data Home Medications Medication Instructions Recorded Confirmed Albuterol Nebulized [Ventolin 2.5 mg INHALATION RT-Q4H PRN 12/26/16 03/04/17 Nebulized] Albuterol Inhaler [Ventolin Hfa 1 - 2 puff INHALATION RT-Q6H PRN 01/03/17 Inhaler] Budesonide/Formoterol Fumarate 2 puff INHALATION RT-BID 01/03/17 03/04/17 [Symbicort 80-4.5 Mcg Inhaler] Previous Rx's Medication Instructions Recorded Lisinopril [Zestril] 5 mg PO DAILY #60 tab 12/26/16 Allergies Allergy/AdvReac Type Severity Reaction Status Date / Time red dye Allergy Unknown Verified 05/05/17 17:18 [employer] S[employer]ERS AdvReac NAUSEA/DIAR Uncoded 05/05/17 17:18 TORIBIO/COUGHI NG Review of Systems ROS Statement: Those systems with pertinent positive or pertinent negative responses have been documented in the HPI. ROS Other: All systems not noted in ROS Statement are negative. Past Medical History Past Medical History: Asthma, COPD, GERD/Reflux, Hypertension Additional Past Medical History / Comment(s): seasonal allergies. History of Any Multi-Drug Resistant Organisms: None Reported Past Surgical History: No Surgical Hx Reported Past Psychological History: No Psychological Hx Reported Smoking Status: Never smoker Past Alcohol Use History: None Reported Past Drug Use History: None Reported General Exam Limitations: no limitations General appearance: alert, in no apparent distress, other (Nontoxic appearing) Head exam: Present: atraumatic, normocephalic, normal inspection Eye exam: Present: normal appearance, PERRL, EOMI. Absent: scleral icterus, conjunctival injection, periorbital swelling ENT exam: Present: normal exam, mucous membranes moist Neck exam: Present: normal inspection. Absent: tenderness, meningismus, lymphadenopathy Respiratory exam: Present: wheezes, other (Conversational dyspnea. Mild tachypnea. Pulse ox at 93% on room air. Exertional dyspnea. Diminished breath sounds at the lung bases bilaterally. Expiratory wheeze in the anterior lung klein but absent in the posterior lung klein.). Absent: respiratory distress, rales, rhonchi, stridor Cardiovascular Exam: Present: regular rate, normal rhythm, normal heart sounds. Absent: systolic murmur, diastolic murmur, rubs, gallop, clicks GI/Abdominal exam: Present: soft, normal bowel sounds. Absent: distended, tenderness, guarding, rebound, rigid Extremities exam: Present: normal inspection, full ROM, normal capillary refill. Absent: tenderness, pedal edema, joint swelling, calf tenderness Back exam: Present: normal inspection Neurological exam: Present: alert, oriented X3, CN II-XII intact Psychiatric exam: Present: normal affect, normal mood Skin exam: Present: warm, dry, intact, normal color. Absent: rash Course Vital Signs 05/05/17 05/05/17 05/05/17 17:16 17:30 17:54 Temperature 97.5 F L Pulse Rate 96 98 Respiratory 20 20 Rate Blood Pressure 201/88 O2 Sat by Pulse 93 L Oximetry 05/05/17 05/05/17 18:06 19:08 Temperature Pulse Rate 100 79 Respiratory 16 Rate Blood Pressure 170/77 O2 Sat by Pulse 92 L Oximetry Medical Decision Making - Medical Decision Making 1735: Patient is a 71-year-old female who presents for evaluation for shortness of breath and cough which is somewhat chronic in nature. Sent in by PCP for concern for pulmonary embolism. Will order CTA chest with IV contrast. We'll also order basic labs with troponin, BNP. DuoNeb's. Solu-Medrol, EKG with cardiac monitoring. Oxygen. 1817: Reviewed EKG. Normal sinus rhythm at 91. TN 158. QRS 82. QTc 447. No ST changes. Similar to EKG on 03/04/2017. 1820: Patient has 3/4 SIRS criteria; tachycardia, tachypnea, leukocytosis. Ordered blood cultures and lactic acid. 1 L IVF bolus for now as some concern for CHF component. 1939: Reviewed CT findings. No evidence of pulmonary embolism. No evidence of infiltrative pneumonia. However, the patient is tachycardic, to With severe leukocytosis. Concern for atypical pneumonia in the setting of advanced COPD. Started on Rocephin and his ether myosin. Ordered blood cultures. IV fluids ordered. I discussed this with SPANISHER of Dr. Holguin (covering for [facility]) who agrees with admission. Requesting consult to Dr. Gruber (pulm). No further orders. - Lab Data Result diagrams: 05/05/17 18:00 05/05/17 18:00 Lab Results 05/05/17 05/05/17 05/05/17 Range/Units 18:00 18:00 18:00 WBC 19.3 H (3.8-10.6) k/uL RBC 4.64 (3.80-5.40) m/uL Hgb 13.6 (11.4-16.0) gm/dL Hct 41.4 (34.0-46.0) % MCV 89.2 (80.0-100.0) fL MCH 29.3 (25.0-35.0) pg MCHC 32.8 (31.0-37.0) g/dL RDW 14.0 (11.5-15.5) % Plt Count 293 (150-450) k/uL Neutrophils % 87 % Lymphocytes % 8 % Monocytes % 4 % Eosinophils % 0 % Basophils % 0 % Neutrophils # 16.8 H (1.3-7.7) k/uL Lymphocytes # 1.5 (1.0-4.8) k/uL Monocytes # 0.8 (0-1.0) k/uL Eosinophils # 0.1 (0-0.7) k/uL Basophils # 0.0 (0-0.2) k/uL Sodium 142 (137-145) mmol/L Potassium 4.1 (3.5-5.1) mmol/L Chloride 102 (98-107) mmol/L Carbon Dioxide 29 (22-30) mmol/L Anion Gap 11 mmol/L BUN 11 (7-17) mg/dL Creatinine 0.72 (0.52-1.04) mg/dL Est GFR (MDRD) Af Amer >60 (>60 ml/min/1.73 sqM) Est GFR (MDRD) Non-Af >60 (>60 ml/min/1.73 sqM) Glucose 125 H (74-99) mg/dL Plasma Lactic Acid Omega (0.7-2.0) mmol/L Calcium 9.9 (8.4-10.2) mg/dL Magnesium 2.2 (1.6-2.3) mg/dL Total Bilirubin 0.4 (0.2-1.3) mg/dL AST 22 (14-36) U/L ALT 49 (9-52) U/L Alkaline Phosphatase 56 (38-126) U/L Troponin I (0.000-0.034) ng/mL NT-Pro-B Natriuret Pep 370 pg/mL Total Protein 8.3 H (6.3-8.2) g/dL Albumin 4.8 (3.5-5.0) g/dL 05/05/17 05/05/17 Range/Units 18:00 18:46 WBC (3.8-10.6) k/uL RBC (3.80-5.40) m/uL Hgb (11.4-16.0) gm/dL Hct (34.0-46.0) % MCV (80.0-100.0) fL MCH (25.0-35.0) pg MCHC (31.0-37.0) g/dL RDW (11.5-15.5) % Plt Count (150-450) k/uL Neutrophils % % Lymphocytes % % Monocytes % % Eosinophils % % Basophils % % Neutrophils # (1.3-7.7) k/uL Lymphocytes # (1.0-4.8) k/uL Monocytes # (0-1.0) k/uL Eosinophils # (0-0.7) k/uL Basophils # (0-0.2) k/uL Sodium (137-145) mmol/L Potassium (3.5-5.1) mmol/L Chloride (98-107) mmol/L Carbon Dioxide (22-30) mmol/L Anion Gap mmol/L BUN (7-17) mg/dL Creatinine (0.52-1.04) mg/dL Est GFR (MDRD) Af Amer (>60 ml/min/1.73 sqM) Est GFR (MDRD) Non-Af (>60 ml/min/1.73 sqM) Glucose (74-99) mg/dL Plasma Lactic Acid Omega 1.1 (0.7-2.0) mmol/L Calcium (8.4-10.2) mg/dL Magnesium (1.6-2.3) mg/dL Total Bilirubin (0.2-1.3) mg/dL AST (14-36) U/L ALT (9-52) U/L Alkaline Phosphatase (38-126) U/L Troponin I <0.012 (0.000-0.034) ng/mL NT-Pro-B Natriuret Pep pg/mL Total Protein (6.3-8.2) g/dL Albumin (3.5-5.0) g/dL Disposition Clinical Impression: CAP (community acquired pneumonia), COPD exacerbation, Acute hypoxemic respiratory failure, Hypertension Disposition: ADMITTED IP TO THIS HOSP Condition: Fair Referrals: Roshan Solis MD [Primary Care Provider] - 1-2 days Decision to Admit Reason: Admit from EC
[2017-05-05 18:12] LABS: Basophils % (A) 0 %; CH 29.5; CHCM 33.2; Eosinophils # (A) 0.1 k/uL (0-0.7); Eosinophils % (A) 0 %; HCT 41.4 % (34.0-46.0); HDW 2.37; HGB 13.6 gm/dL (11.4-16.0); Luc # (Auto) 0.13; Luc % (Auto) 1; Lymphocytes # (A) 1.5 k/uL (1.0-4.8); Lymphocytes % (A) 8 %; MCH 29.3 pg (25.0-35.0); MCHC 32.8 g/dL (31.0-37.0); MCV 89.2 fL (80.0-100.0); Mean Platelet Volume 8.1; Monocytes # (A) 0.8 k/uL (0-1.0); Monocytes % (A) 4 %; Neutrophils # (A) 16.8 k/uL (1.3-7.7); Neutrophils % (A) 87 %; RBC 4.64 m/uL (3.80-5.40); WBC 19.3 k/uL (3.8-10.6); WBC (Perox) 18.96
[2017-05-05] MEDS ORDERED: SODIUM CHLORIDE 0.9% 1,000 ML IV ONE (18:22)
[2017-05-05 18:31] LABS: ALT 49 U/L (9-52); AST 22 U/L (14-36); Alkaline Phosphatase 56 U/L (38-126); Anion Gap 11 mmol/L; Blood Urea Nitrogen 11 mg/dL (7-17); Calcium 9.9 mg/dL (8.4-10.2); Carbon Dioxide 29 mmol/L (22-30); Chloride 102 mmol/L (98-107); Glucose 125 mg/dL (74-99); Magnesium 2.2 mg/dL (1.6-2.3); Non-African American GFR(MDRD) >60 (>60 ml/min/1.73 sqM); Potassium 4.1 mmol/L (3.5-5.1); Sodium 142 mmol/L (137-145); Total Bilirubin 0.4 mg/dL (0.2-1.3); Total Protein 8.3 g/dL (6.3-8.2)
--- NOTE | 2017-05-05 19:23 | CT ---
EXAMINATION TYPE: CT angio chest DATE OF EXAM: 05/05/2017 7:04 PM COMPARISON: 03/04/2017 HISTORY: CHEST PAIN/SOB CT DLP: 475.7 mGycm Automated exposure control for dose reduction was used. CONTRAST: CTA scan of the thorax is performed with IV Contrast, patient injected with 70 mL of Omnipaque 350, p ulmonary embolism protocol. There are 3-D post processed images.. FINDINGS: The lungs are clear of consolidation. There is no evidence of a pulmonary mass. There is a 5 mm area of pleural thickening in the lingula left upper lobe. There is no pleural effusion. Heart size is normal. There is no pericardial effusion. I see no filling defects in the pulmonary art eries. There are no hilar masses. There is no mediastinal adenopathy. There is no evidence of aortic aneurysm or dissection. There is spurring in the thoracic spine. IMPRESSION: NO EVIDENCE OF PULMONARY EMBOLISM. NO ADVERSE CHANGE COMPARED TO OLD EXAM.
[2017-05-05] MEDS ORDERED: NALOXONE 0.4 MG/ML 1 ML VIAL IV PRN (19:47)
[2017-05-05] MEDS ORDERED: AZITHROMYCIN 500 MG in SODIUM CHLORIDE 0.9% 250 ML IVPB SCH (21:00)
[2017-05-05] MEDS: SODIUM CHLORIDE 0.9% 1,000 ML IV SCH (21:10)
[2017-05-05 21:49] VITALS: BMI 28.0
[2017-05-05] MEDS ORDERED: MELATONIN 5 MG TABLET PO PRN (22:16)
[2017-05-05] MEDS ORDERED: ACETAMINOPHEN TAB 325 MG TAB PO PRN (22:16)
[2017-05-05] MEDS ORDERED: IPRATROPIUM-ALBUTEROL 3 ML NEB INHALATION PRN (22:21)
[2017-05-05] MEDS: LORATADINE-PSEUDOEPH 5-120 MG 1 EACH TAB.ER.12H PO SCH (23:17)
[2017-05-05] MEDS: LISINOPRIL 5 MG TAB PO SCH (23:17)
[2017-05-05] MEDS: methylPREDNISolone SOD SUCCI 125 MG/2 ML VIAL IV SCH (23:18)
[2017-05-05] MEDS: IPRATROPIUM-ALBUTEROL 3 ML NEB INHALATION SCH (23:59)
[2017-05-05] MEDS: SYMBICORT 80-4.5 MCG INHALER INHALATION SCH (23:59)
[2017-05-06] MEDS: SODIUM CHLORIDE 0.9% 1,000 ML IV SCH ×2 (05:47→11:09)
[2017-05-06] MEDS: methylPREDNISolone SOD SUCCI 125 MG/2 ML VIAL IV SCH ×2 (05:47→12:17)
[2017-05-06] MEDS: IPRATROPIUM-ALBUTEROL 3 ML NEB INHALATION SCH ×3 (06:50→15:44)
[2017-05-06] MEDS: SYMBICORT 80-4.5 MCG INHALER INHALATION SCH (06:50)
[2017-05-06 07:04] LABS: Glucose,Whole Blood 149 mg/dL (75-99)
[2017-05-06] MEDS: LISINOPRIL 5 MG TAB PO SCH (07:53)
[2017-05-06] MEDS: INSULIN LISPRO (humaLOG) 300 UNIT/3 ML VIAL SQ SCH ×2 (07:53→12:17)
[2017-05-06] MEDS: LORATADINE-PSEUDOEPH 5-120 MG 1 EACH TAB.ER.12H PO SCH (07:53)
[2017-05-06 08:07] LABS: Basophils % (A) 0 %; CH 28.3; CHCM 32.4; Eosinophils % (A) 0 %; HCT 39.6 % (34.0-46.0); HDW 2.34; HGB 13.1 gm/dL (11.4-16.0); Luc # (Auto) 0.02; Luc % (Auto) 0; Lymphocytes # (A) 0.9 k/uL (1.0-4.8); Lymphocytes % (A) 6 %; MCH 28.9 pg (25.0-35.0); MCHC 33.1 g/dL (31.0-37.0); MCV 87.5 fL (80.0-100.0); Mean Platelet Volume 7.6; Monocytes # (A) 0.3 k/uL (0-1.0); Monocytes % (A) 2 %; Neutrophils # (A) 12.6 k/uL (1.3-7.7); Neutrophils % (A) 91 %; RBC 4.53 m/uL (3.80-5.40); RDW 13.1 % (11.5-15.5); WBC 13.8 k/uL (3.8-10.6); WBC (Perox) 14.99
[2017-05-06 08:12] LABS: ALT 43 U/L (9-52); AST 20 U/L (14-36); Alkaline Phosphatase 51 U/L (38-126); Anion Gap 9 mmol/L; Blood Urea Nitrogen 13 mg/dL (7-17); Calcium 9.1 mg/dL (8.4-10.2); Carbon Dioxide 26 mmol/L (22-30); Chloride 106 mmol/L (98-107); Glucose 157 mg/dL (74-99); Magnesium 2.1 mg/dL (1.6-2.3); Non-African American GFR(MDRD) >60 (>60 ml/min/1.73 sqM); Potassium 4.2 mmol/L (3.5-5.1); Sodium 141 mmol/L (137-145); Total Bilirubin 0.3 mg/dL (0.2-1.3); Total Protein 7.2 g/dL (6.3-8.2)
[2017-05-06 11:48] LABS: Hemoglobin A1C 6.2 % (4.2-6.1)
[2017-05-06 12:04] LABS: Glucose,Whole Blood 145 mg/dL (75-99)
--- NOTE | 2017-05-06 12:53 | P.CNPUL ---
History of Present Illness Consult date: 05/06/17 Requesting physician: Irene Holguin Reason for consult: COPD Chief complaint: Shortness of breath History of present illness: This is a 71-year-old female patient being seen examined and evaluated today on the fourth floor. This patient came into the emergency room on 05/05/2017 with complaints of shortness of breath. The primary care physician Center over to the emergency room to rule out possible PE. The patient did undergo a CTA which revealed no evidence of pulmonary embolism. Patient was also noted to be hypertensive, tachycardic, with severe leukocytosis in the emergency room as well. Lactic acid was 1.1. She was admitted for further workup for possible community-acquired pneumonia with COPD exacerbation and acute hypoxic respiratory failure. The patient did state that she recently ran out of her Symbicort inhaler which she is prescribed at home and this when her shortness of breath Progressively worse. Patient states she is also been coughing more than usual which is productive with white sputum. Currently she is resting up in bed on 2 L of supplemental oxygen and does not use oxygen at home. Patient states she feels better today compared to yesterday when she was admitted. She has received breathing treatments as well as steroids and antibiotics. Currently she is afebrile no further complaints. Review of Systems 14 point review of systems was completed and is negative unless noted above in the HPI. Past Medical History Past Medical History: Asthma, COPD, GERD/Reflux, Hypertension, Pneumonia Additional Past Medical History / Comment(s): seasonal allergies. History of Any Multi-Drug Resistant Organisms: None Reported Past Surgical History: No Surgical Hx Reported Past Psychological History: Anxiety, Depression Smoking Status: Never smoker Past Alcohol Use History: None Reported Past Drug Use History: None Reported - Past Family History Mother Family Medical History: Thyroid Disorder Medications and Allergies Home Medications Medication Instructions Recorded Confirmed Type Albuterol Nebulized [Ventolin 2.5 mg INHALATION RT-Q4H PRN 12/26/16 05/05/17 History Nebulized] Albuterol Inhaler [Ventolin Hfa 1 - 2 puff INHALATION RT-Q6H PRN 01/03/17 History Inhaler] Budesonide/Formoterol Fumarate 2 puff INHALATION RT-BID 01/03/17 05/05/17 History [Symbicort 80-4.5 Mcg Inhaler] Fexofenadine/Pseudoephedrine 1 each PO DAILY 05/05/17 05/05/17 History [Valeria-D 24 Hour Tablet] Allergies Allergy/AdvReac Type Severity Reaction Status Date / Time blue dye Allergy Asthma Verified 05/05/17 20:39 Exacerbation red dye Allergy Asthma Verified 05/05/17 20:39 Exacerbation [employer]WE[employer]ERS Allergy Asthma Uncoded 05/05/17 20:39 Exacerbation Physical Exam Vitals: Vital Signs Temp Pulse Pulse Resp BP BP Pulse Ox 05/06/17 11:31 92 L 05/06/17 11:16 100 05/06/17 11:08 96 05/06/17 07:02 102 H 05/06/17 07:00 97.2 F L 95 18 158/95 95 05/06/17 06:52 106 H 88 L 05/06/17 00:10 80 05/06/17 00:03 80 05/05/17 23:00 97.4 F L 88 16 162/75 92 L 05/05/17 20:39 97.4 F L 72 16 172/86 94 L 05/05/17 19:08 79 16 170/77 92 L 05/05/17 18:06 100 05/05/17 17:54 98 05/05/17 17:30 20 05/05/17 17:16 97.5 F L 96 20 201/88 93 L Intake and Output 05/05/17 05/06/17 05/06/17 22:59 06:59 14:59 Other: # Voids 1 2 1 Weight 67.5 kg GENERAL EXAM: Alert, active, comfortable in no apparent distress. HEAD: Normocephalic. EYES: Normal reaction of pupils, equal size. NOSE: Clear with pink turbinates. THROAT: No erythema or exudates. NECK: No masses, no JVD. CHEST: No chest wall deformity. LUNGS: Equal air entry noted to be coarse with expiratory wheezes scattered throughout. Diminished breath sounds at the bilateral bases.. CVS: S1 and S2 normal with no audible mumurs, regular rhythm. ABDOMEN: No hepatosplenomegaly, normal bowel sounds, no guarding or rigidity. EXTREMITIES: No edema noted, pedal pulses palpable. SKIN: No rashes CENTRAL NERVOUS SYSTEM: No focal deficits, tone is normal in all 4 extremities. Results - Laboratory Findings CBC and BMP: 05/06/17 07:32 05/06/17 07:32 Abnormal lab findings: Abnormal Labs 05/05/17 05/05/17 05/06/17 18:00 18:00 07:02 WBC 19.3 H Neutrophils # 16.8 H Lymphocytes # Glucose 125 H POC Glucose (mg/dL) 149 H Total Protein 8.3 H 05/06/17 05/06/17 05/06/17 07:32 07:32 12:02 WBC 13.8 H Neutrophils # 12.6 H Lymphocytes # 0.9 L Glucose 157 H POC Glucose (mg/dL) 145 H Total Protein - Diagnostic Findings CT scan - chest: report reviewed, image reviewed Assessment and Plan Plan: Assessment SIRS with possible atypical pneumonia Acute exacerbation of COPD Acute hypoxic respiratory failure Hypertension Chronic persistent asthma, severity unknown History of GERD History of seasonal ALLERGIES Plan Medications have been reviewed and will be continued as ordered. Continue with IV steroids and antibiotics. Cultures pending. Continue with pulmonary hygiene , coughing and deep breathing exercises, and supportive care. Supplemental oxygen to maintain oxygen saturations of 92% or better. Continue nebulizer treatments. GI and DVT prophylaxis. We will also renew scripts upon discharge for her Symbicort that she is out of this at home. Initiate and encourage incentive spirometer. We will continue to monitor labs/results and adjust treatment as necessary. Further recommendations pending. I performed an examination of the patient and discussed their management with the nurse practitioner. I have reviewed the nurse practitioner's note and agree with the documented findings and plan of care.
--- NOTE | 2017-05-06 14:32 | P.HPIM ---
History of Present Illness H&P Date: 05/06/17 (Discharge summary as well) This is a 71-year-old female that comes in to the hospital with the complaints of difficulty breathing with cough and chills prior to admission Patient states that she has secondhand smoking exposure daily Was diagnosed with asthma by her primary care physician is on albuterol for when necessary use Patient stated that her breathing is significantly worse hence came into the emergency room patient underwent a CT angiogram poorly and was was ruled out there was no pneumonia Patient states her cough is significantly improved after breathing treatment and steroids Patient has made an appointment with Dr. Jaramillo in the recent times At this time patient is doing well was able to family without any need for supplemental oxygen Review of Systems All systems: negative (Noted in HPI) Past Medical History Past Medical History: Asthma, COPD, GERD/Reflux, Hypertension, Pneumonia Additional Past Medical History / Comment(s): seasonal allergies. History of Any Multi-Drug Resistant Organisms: None Reported Past Surgical History: No Surgical Hx Reported Past Psychological History: Anxiety, Depression Smoking Status: Never smoker Past Alcohol Use History: None Reported Past Drug Use History: None Reported - Past Family History Mother Family Medical History: Thyroid Disorder Medications and Allergies Home Medications Medication Instructions Recorded Confirmed Type Albuterol Nebulized [Ventolin 2.5 mg INHALATION RT-Q4H PRN 12/26/16 05/05/17 History Nebulized] Fexofenadine/Pseudoephedrine 1 each PO DAILY 05/05/17 05/05/17 History [Valeria-D 24 Hour Tablet] Allergies Allergy/AdvReac Type Severity Reaction Status Date / Time blue dye Allergy Asthma Verified 05/05/17 20:39 Exacerbation red dye Allergy Asthma Verified 05/05/17 20:39 Exacerbation [employer] Allergy Asthma Uncoded 05/05/17 20:39 Exacerbation Physical Exam Vitals: Vital Signs Temp Pulse Pulse Resp BP BP Pulse Ox 05/06/17 11:31 92 L 05/06/17 11:16 100 05/06/17 11:08 96 05/06/17 07:02 102 H 05/06/17 07:00 97.2 F L 95 18 158/95 95 05/06/17 06:52 106 H 88 L 05/06/17 00:10 80 05/06/17 00:03 80 05/05/17 23:00 97.4 F L 88 16 162/75 92 L 08/17/17 20:39 97.4 F L 72 16 172/86 94 L 05/05/17 19:08 79 16 170/77 92 L 05/05/17 18:06 100 05/05/17 17:54 98 05/05/17 17:30 20 05/05/17 17:16 97.5 F L 96 20 201/88 93 L Intake and Output 05/05/17 05/06/17 05/06/17 22:59 06:59 14:59 Other: # Voids 1 2 1 Weight 67.5 kg Physical exam Gen. appearance oriented 3 in no distress Neck is supple no JVD Lungs good air entry clear to auscultation no rhonchi or wheezing Heart S1-S2 heard regular rate and rhythm no murmurs appreciated Abdomen is soft nontender no organomegaly bowel sounds are intact Neurologically cranial nerves II-12 grossly intact no focal motor or sensory deficits noted Skin no abnormalities appreciated Results CBC & Chem 7: 05/06/17 07:32 05/06/17 07:32 Labs: Abnormal Lab Results - Last 24 Hours (Table) 05/05/17 05/05/17 05/06/17 Range/Units 18:00 18:00 07:02 WBC 19.3 H (3.8-10.6) k/uL Neutrophils # 16.8 H (1.3-7.7) k/uL Lymphocytes # (1.0-4.8) k/uL Glucose 125 H (74-99) mg/dL POC Glucose (mg/dL) 149 H (75-99) mg/dL Hemoglobin A1c (4.2-6.1) % Total Protein 8.3 H (6.3-8.2) g/dL 05/06/17 05/06/17 05/06/17 Range/Units 07:32 07:32 07:32 WBC 13.8 H (3.8-10.6) k/uL Neutrophils # 12.6 H (1.3-7.7) k/uL Lymphocytes # 0.9 L (1.0-4.8) k/uL Glucose 157 H (74-99) mg/dL POC Glucose (mg/dL) (75-99) mg/dL Hemoglobin A1c 6.2 H (4.2-6.1) % Total Protein (6.3-8.2) g/dL 05/06/17 Range/Units 12:02 WBC (3.8-10.6) k/uL Neutrophils # (1.3-7.7) k/uL Lymphocytes # (1.0-4.8) k/uL Glucose (74-99) mg/dL POC Glucose (mg/dL) 145 H (75-99) mg/dL Hemoglobin A1c (4.2-6.1) % Total Protein (6.3-8.2) g/dL Thrombosis Risk Factor Assmnt - Choose All That Apply Any of the Below Risk Factors Present?: Yes Each Factor Represents 1 point: Abnormal pulmonary function (COPD), Obesity ( BMI >25), Serious lung disease incl. pneumonia (< 1month) Other Risk Factors: Yes Each Risk Factor Represents 2 Points: Age 61-74 years Thrombosis Risk Factor Assessment Total Risk Factor Score: 5 Thrombosis Risk Factor Assessment Level: High Risk Assessment and Plan Plan: Sepsis likely secondary to tracheobronchitis #2 COPD secondary to secondhand smoking exposure with a mild exacerbation Plan Patient is improved patient is to follow-up with Dr. Jaramillo on outpatient basis We'll be discharged on Symbicort and Zithromax. Patient will be given a Medrol Dosepak as well
[2017-05-06 15:28] VITALS: BP 174/91; RESP 20; TEMP 97.1
[2017-05-06 15:47] VITALS: PULSE 107
[2017-05-06] MEDS ORDERED: methylPREDNISolone SOD SUCCI 40 MG/ML 1 ML VIAL IV SCH (21:00)
[2017-05-07] MEDS ORDERED: AZITHROMYCIN 500 MG TAB PO SCH (21:00)
== END 2017-05-06 16:30 | disposition home health service (06) | DRG 871 ==
LOC: EC 17:00 → 4MS4W 19:50
PROVIDERS: ADMIT Hospitalist; ATTEND Hospitalist
DX: A41.9 Sepsis, unspecified organism (principal); J96.01 Acute respiratory failure with hypoxia; J44.1 Chronic obstructive pulmonary disease with (acute) exacerbation; J44.0 Chronic obstructive pulmonary disease with (acute) lower respiratory infection; I10 Essential (primary) hypertension; T48.6X6A Underdosing of antiasthmatics, initial encounter; K21.9 Gastro-esophageal reflux disease without esophagitis; J20.9 Acute bronchitis, unspecified; R00.0 Tachycardia, unspecified; R20.0 Anesthesia of skin; J30.2 Other seasonal allergic rhinitis; F32.9 Major depressive disorder, single episode, unspecified; F41.9 Anxiety disorder, unspecified; Z77.22 Contact with and (suspected) exposure to environmental tobacco smoke (acute) (chronic); Z87.01 Personal history of pneumonia (recurrent); Z83.49 Family history of other endocrine, nutritional and metabolic diseases; Z91.14 Patient's other noncompliance with medication regimen; Z91.02 Food additives allergy status; Z79.51 Long term (current) use of inhaled steroids; Z79.899 Other long term (current) drug therapy
CPT/HCPCS: 36415; 71275; 80053; 83036; 83605; 83735; 83880; 84484; 85025; 87040; 93005; 94640; 94760; 96365; 96375; 99285

== ENCOUNTER 2017-09-22 18:38 | Emergency (ER) | payer MEDICARE, OTHER ==
[2017-09-22 18:50] VITALS: TEMP 97.2
[2017-09-22] MEDS ORDERED: IPRATROPIUM-ALBUTEROL 3 ML NEB INHALATION STA (19:15)
--- NOTE | 2017-09-22 19:20 | ED ---
General Adult HPI - General Chief complaint: Recheck/Abnormal Lab/Rx Stated complaint: Dyspnea Time Seen by Provider: 09/22/17 19:08 Source: patient, RN notes reviewed Mode of arrival: ambulatory Limitations: no limitations - History of Present Illness Initial comments: Patient is a pleasant 71-year-old female presenting to the emergency department with difficulty breathing. Symptoms have progressed over a few days. Patient ran out of her albuterol and would like a refill. Patient states last time she was at her doctor's her blood pressure was elevated and she did increase her lisinopril from 5-10 mg. Patient has been taking this as prescribed. No fevers. Patient does have occasional cough with white to clear sputum. No chest pain. - Related Data Home Medications Medication Instructions Recorded Confirmed Albuterol Nebulized [Ventolin 2.5 mg INHALATION RT-Q4H PRN 12/26/16 09/22/17 Nebulized] Lisinopril [Zestril] 20 mg PO DAILY 09/22/17 09/22/17 Previous Rx's Medication Instructions Recorded Albuterol Inhaler [Ventolin Hfa 1 - 2 puff INHALATION RT-Q6H PRN #1 05/06/17 Inhaler] Budesonide/Formoterol Fumarate 2 puff INHALATION RT-BID #1 puff 05/06/17 [Symbicort 80-4.5 Mcg Inhaler] Albuterol Inhaler [Ventolin Hfa 2 puff INHALATION Q4HR PRN #1 09/22/17 Inhaler] inhaler Allergies Allergy/AdvReac Type Severity Reaction Status Date / Time blue dye Allergy Asthma Verified 09/22/17 20:29 Exacerbation red dye Allergy Asthma Verified 09/22/17 20:29 Exacerbation ARTIFICIAL SWEETNERS Allergy Asthma Uncoded 09/22/17 20:29 Exacerbation Review of Systems ROS Statement: Those systems with pertinent positive or pertinent negative responses have been documented in the HPI. ROS Other: All systems not noted in ROS Statement are negative. Constitutional: Denies: fever Eyes: Denies: eye pain ENT: Reports: congestion. Denies: ear pain Respiratory: Reports: cough, dyspnea Cardiovascular: Denies: chest pain Endocrine: Denies: fatigue Gastrointestinal: Denies: abdominal pain Genitourinary: Denies: dysuria Musculoskeletal: Denies: back pain Skin: Denies: rash Neurological: Denies: weakness Past Medical History Past Medical History: Asthma, COPD, GERD/Reflux, Hypertension, Pneumonia Additional Past Medical History / Comment(s): seasonal allergies. History of Any Multi-Drug Resistant Organisms: None Reported Past Surgical History: No Surgical Hx Reported Past Psychological History: Anxiety, Depression Smoking Status: Never smoker Past Alcohol Use History: None Reported Past Drug Use History: None Reported - Past Family History Mother Family Medical History: Thyroid Disorder General Exam Limitations: no limitations General appearance: alert, in no apparent distress Head exam: Present: atraumatic Eye exam: Present: normal appearance, PERRL ENT exam: Present: normal oropharynx Neck exam: Present: normal inspection Respiratory exam: Present: wheezes (Mild), decreased breath sounds Cardiovascular Exam: Present: regular rate, normal rhythm GI/Abdominal exam: Present: soft. Absent: tenderness Extremities exam: Present: normal inspection. Absent: pedal edema, calf tenderness Back exam: Present: normal inspection Neurological exam: Present: alert Psychiatric exam: Present: normal affect, normal mood Skin exam: Present: normal color Course Vital Signs 09/22/17 09/22/17 09/22/17 18:46 19:37 19:48 Temperature 97.2 F L Pulse Rate 103 H 100 92 Respiratory 24 Rate Blood Pressure 243/111 O2 Sat by Pulse 96 Oximetry 09/22/17 20:42 Temperature Pulse Rate 75 Respiratory 20 Rate Blood Pressure 167/76 O2 Sat by Pulse 94 L Oximetry EKG Findings - EKG Comments: EKG Findings:: Normal sinus rhythm 91. LA 162. QRS 80. QT 380. QTC 467. Normal axis. Normal QRS. No acute ST change. Medical Decision Making - Medical Decision Making Patient reexamined and resting comfortably in bed. Patient feels better and comfortable with discharge home. Patient states she needs a refill of her albuterol prescription. - Lab Data Result diagrams: 09/22/17 19:42 09/22/17 19:42 Lab Results 09/22/17 09/22/17 09/22/17 Range/Units 19:42 19:42 19:42 WBC 5.2 (3.8-10.6) k/uL RBC 4.60 (3.80-5.40) m/uL Hgb 13.0 (11.4-16.0) gm/dL Hct 40.5 (34.0-46.0) % MCV 88.1 (80.0-100.0) fL MCH 28.2 (25.0-35.0) pg MCHC 32.1 (31.0-37.0) g/dL RDW 12.9 (11.5-15.5) % Plt Count 265 (150-450) k/uL Neutrophils % 61 % Lymphocytes % 27 % Monocytes % 6 % Eosinophils % 4 % Basophils % 1 % Neutrophils # 3.2 (1.3-7.7) k/uL Lymphocytes # 1.4 (1.0-4.8) k/uL Monocytes # 0.3 (0-1.0) k/uL Eosinophils # 0.2 (0-0.7) k/uL Basophils # 0.0 (0-0.2) k/uL PT (9.0-12.0) sec INR (<1.2) APTT (22.0-30.0) sec Sodium 142 (137-145) mmol/L Potassium 4.2 (3.5-5.1) mmol/L Chloride 103 (98-107) mmol/L Carbon Dioxide 31 H (22-30) mmol/L Anion Gap 8 mmol/L BUN 13 (7-17) mg/dL Creatinine 0.80 (0.52-1.04) mg/dL Est GFR (MDRD) Af Amer >60 (>60 ml/min/1.73 sqM) Est GFR (MDRD) Non-Af >60 (>60 ml/min/1.73 sqM) Glucose 116 H (74-99) mg/dL Calcium 9.8 (8.4-10.2) mg/dL Total Bilirubin 0.2 (0.2-1.3) mg/dL AST 21 (14-36) U/L ALT 39 (9-52) U/L Alkaline Phosphatase 46 (38-126) U/L Total Creatine Kinase 143 H (30-135) U/L CK-MB (CK-2) 1.1 (0.0-2.4) ng/mL CK-MB (CK-2) Rel Index 0.8 Troponin I <0.012 (0.000-0.034) ng/mL NT-Pro-B Natriuret Pep pg/mL Total Protein 7.4 (6.3-8.2) g/dL Albumin 4.3 (3.5-5.0) g/dL Influenza Type A RNA (Not Detectd) Influenza Type B (PCR) (Not Detectd) 09/22/17 09/22/17 09/22/17 Range/Units 19:42 19:42 19:42 WBC (3.8-10.6) k/uL RBC (3.80-5.40) m/uL Hgb (11.4-16.0) gm/dL Hct (34.0-46.0) % MCV (80.0-100.0) fL MCH (25.0-35.0) pg MCHC (31.0-37.0) g/dL RDW (11.5-15.5) % Plt Count (150-450) k/uL Neutrophils % % Lymphocytes % % Monocytes % % Eosinophils % % Basophils % % Neutrophils # (1.3-7.7) k/uL Lymphocytes # (1.0-4.8) k/uL Monocytes # (0-1.0) k/uL Eosinophils # (0-0.7) k/uL Basophils # (0-0.2) k/uL PT 9.8 (9.0-12.0) sec INR 1.0 (<1.2) APTT 24.4 (22.0-30.0) sec Sodium (137-145) mmol/L Potassium (3.5-5.1) mmol/L Chloride (98-107) mmol/L Carbon Dioxide (22-30) mmol/L Anion Gap mmol/L BUN (7-17) mg/dL Creatinine (0.52-1.04) mg/dL Est GFR (MDRD) Af Amer (>60 ml/min/1.73 sqM) Est GFR (MDRD) Non-Af (>60 ml/min/1.73 sqM) Glucose (74-99) mg/dL Calcium (8.4-10.2) mg/dL Total Bilirubin (0.2-1.3) mg/dL AST (14-36) U/L ALT (9-52) U/L Alkaline Phosphatase (38-126) U/L Total Creatine Kinase (30-135) U/L CK-MB (CK-2) (0.0-2.4) ng/mL CK-MB (CK-2) Rel Index Troponin I (0.000-0.034) ng/mL NT-Pro-B Natriuret Pep 82 pg/mL Total Protein (6.3-8.2) g/dL Albumin (3.5-5.0) g/dL Influenza Type A RNA Not Detected (Not Detectd) Influenza Type B (PCR) Not Detected (Not Detectd) - Radiology Data Radiology results: image reviewed (Chest x-ray shows no acute process) Disposition Clinical Impression: COPD exacerbation Disposition: HOME SELF-CARE Condition: Stable Instructions: COPD (Chronic Obstructive Pulmonary Disease) (ED) Additional Instructions: Please follow-up with your primary care physician in the next day or 2 for recheck. Return for fevers, difficulty breathing, worsening or change in symptoms or other concerns. Prescriptions: Albuterol Inhaler [Ventolin Hfa Inhaler] 2 puff INHALATION Q4HR PRN #1 inhaler PRN Reason: Dyspnea Referrals: Roshan Solis MD [Primary Care Provider] - 1-2 days Time of Disposition: 21:21
[2017-09-22 19:58] LABS: Basophils % (A) 1 %; Eosinophils # (A) 0.2 k/uL (0-0.7); Eosinophils % (A) 4 %; HCT 40.5 % (34.0-46.0); Lymphocytes # (A) 1.4 k/uL (1.0-4.8); Lymphocytes % (A) 27 %; MCH 28.2 pg (25.0-35.0); MCHC 32.1 g/dL (31.0-37.0); MCV 88.1 fL (80.0-100.0); Mean Platelet Volume 7.2; Monocytes # (A) 0.3 k/uL (0-1.0); Monocytes % (A) 6 %; Neutrophils # (A) 3.2 k/uL (1.3-7.7); Neutrophils % (A) 61 %; Platelet Count 265 k/uL (150-450); RDW 12.9 % (11.5-15.5); WBC 5.2 k/uL (3.8-10.6)
[2017-09-22 20:16] LABS: ALT 39 U/L (9-52); AST 21 U/L (14-36); Albumin 4.3 g/dL (3.5-5.0); Alkaline Phosphatase 46 U/L (38-126); Anion Gap 8 mmol/L; Blood Urea Nitrogen 13 mg/dL (7-17); Calcium 9.8 mg/dL (8.4-10.2); Carbon Dioxide 31 mmol/L (22-30); Chloride 103 mmol/L (98-107); Creatine Kinase 143 U/L (30-135); Glucose 116 mg/dL (74-99); Potassium 4.2 mmol/L (3.5-5.1); Sodium 142 mmol/L (137-145); Total Bilirubin 0.2 mg/dL (0.2-1.3); Total Protein 7.4 g/dL (6.3-8.2)
[2017-09-22 20:25] LABS: Partial Thromboplastin Time 24.4 sec (22.0-30.0); Prothrombin Time 9.8 sec (9.0-12.0)
[2017-09-22 20:29] LABS: Creatine Kinase MB 1.1 ng/mL (0.0-2.4); Troponin I <0.012 ng/mL (0.000-0.034)
--- NOTE | 2017-09-22 20:33 | XR ---
EXAMINATION TYPE: XR chest 2V DATE OF EXAM: 09/22/2017 COMPARISON: 03/04/2017 HISTORY: Cough TECHNIQUE: Frontal and lateral views of the chest are obtained. FINDINGS: Heart and mediastinum are normal. Lungs are clear. Diaphragm is normal. There are chest le ads. Bony thorax is intact. There are small calcified granulomata at the pulmonary yanet. IMPRESSION: Healed granulomatous disease. No active cardiopulmonary disease. No change. Normal heart .
[2017-09-22 20:43] VITALS: BP 167/76; PULSE 75; RESP 20
== END 2017-09-22 21:33 | disposition home or self-care (01) ==
LOC: EC 18:38
DX: J44.1 Chronic obstructive pulmonary disease with (acute) exacerbation (principal); I10 Essential (primary) hypertension; Z79.899 Other long term (current) drug therapy; Z91.048 Other nonmedicinal substance allergy status; Z91.018 Allergy to other foods
CPT/HCPCS: 36415; 71046; 80053; 82550; 82553; 83880; 84484; 85025; 85610; 85730; 87502; 93005; 94640; 99285

== ENCOUNTER 2018-07-23 18:56 | Emergency (ER) | payer MEDICARE, OTHER ==
[2018-07-23] MEDS ORDERED: MECLIZINE 12.5 MG TAB PO STA (19:43)
[2018-07-23] MEDS ORDERED: SODIUM CHLORIDE 0.9% 1,000 ML IV ONE (19:43)
[2018-07-23] MEDS ORDERED: methylPREDNISolone SOD SUCCI 125 MG/2 ML VIAL IV STA (19:47)
[2018-07-23] MEDS ORDERED: IPRATROPIUM-ALBUTEROL 3 ML NEB INHALATION STA (19:47)
[2018-07-23] MEDS ORDERED: MECLIZINE 25 MG TAB PO STA (19:52)
--- NOTE | 2018-07-23 20:00 | ED ---
Dizziness HPI <Benny Burden - Last Filed: 07/23/18 22:16> - General Source: patient Mode of arrival: ambulatory Limitations: no limitations <Tori Benitez - Last Filed: 07/24/18 03:49> - General Chief Complaint: Dizziness Stated Complaint: dizziness Time Seen by Provider: 07/23/18 19:11 - History of Present Illness Initial Comments: 72-year-old female patient with past medical history significant for hypertension and COPD presents to the emergency department today for complaints of dizzy spells. Patient states that she has been having intermittent episodes of dizziness where she feels like she is going to pass out throughout the day today. Patient states she did have one episode of couple of days ago as well. Patient states that she has been having trouble with high blood pressure. She does take 20 mg of lisinopril daily, she did take her dose late today. States that her doctor did want her started new blood pressure medication however she is concerned about doing so due to side effects, so she has not taken it. Patient states that she has been having increased shortness of breath but she has not been using her Brio inhaler as directed. Patient states that she did have a couple sharp pleuritic chest pains across her chest earlier today. She denies any sweats with this. Denies any nausea or vomiting. Patient is concerned she may be dehydrated because she hasn't been drinking or eating a lot. Patient denies any headache, blurred vision, or double vision. Denies any dizziness or weakness. Denies any numbness or tingling to her extremities. Patient denies any recent rash, fever, chills, abdominal pain, diarrhea, constipation, back pain, hematuria, dysuria, urinary urgency, urinary frequency , or any other complaints. (Tori Benitez) - Related Data Home Medications Medication Instructions Recorded Confirmed Albuterol Nebulized [Ventolin 2.5 mg INHALATION RT-Q4H PRN 12/26/16 09/22/17 Nebulized] Lisinopril [Zestril] 20 mg PO DAILY 09/22/17 09/22/17 Previous Rx's Medication Instructions Recorded Albuterol Inhaler [Ventolin Hfa 1 - 2 puff INHALATION RT-Q6H PRN #1 05/06/17 Inhaler] Budesonide/Formoterol Fumarate 2 puff INHALATION RT-BID #1 puff 05/06/17 [Symbicort 80-4.5 Mcg Inhaler] Albuterol Inhaler [Ventolin Hfa 2 puff INHALATION Q4HR PRN #1 09/22/17 Inhaler] inhaler predniSONE 50 mg PO DAILY #5 tablet 07/23/18 Allergies Allergy/AdvReac Type Severity Reaction Status Date / Time blue dye Allergy Asthma Verified 07/23/18 19:03 Exacerbation red dye Allergy Asthma Verified 07/23/18 19:03 Exacerbation ARTIFICIAL SWEETNERS Allergy Asthma Uncoded 07/23/18 19:03 Exacerbation Review of Systems ROS Other: All systems not noted in ROS Statement are negative. <Benny Burden - Last Filed: 07/23/18 22:16> ROS Other: All systems not noted in ROS Statement are negative. <Tori Benitez - Last Filed: 07/24/18 03:49> ROS Statement: Those systems with pertinent positive or pertinent negative responses have been documented in the HPI. Past Medical History Past Medical History: Asthma, COPD, GERD/Reflux, Hypertension, Pneumonia Additional Past Medical History / Comment(s): seasonal allergies. History of Any Multi-Drug Resistant Organisms: None Reported Past Surgical History: No Surgical Hx Reported Past Psychological History: Anxiety, Depression Smoking Status: Never smoker Past Alcohol Use History: None Reported Past Drug Use History: None Reported - Past Family History Mother Family Medical History: Thyroid Disorder <Tori Benitez - Last Filed: 07/24/18 03:49> General Exam Limitations: no limitations General appearance: alert, in no apparent distress, other (This is a well- developed, well-nourished elderly female patient in no acute distress. Vital signs upon presentation are temperature 98.2F, pulse 101, respirations 18, blood pressure 198/96, pulse ox 95% on room air.) Eye exam: Present: normal appearance, PERRL, EOMI. Absent: scleral icterus, conjunctival injection, periorbital swelling ENT exam: Present: normal exam, normal oropharynx, mucous membranes moist Respiratory exam: Present: wheezes (Expiratory wheezing to all posterior lung klein). Absent: normal lung sounds bilaterally, respiratory distress, rales, rhonchi, stridor Cardiovascular Exam: Present: regular rate, normal rhythm, normal heart sounds. Absent: systolic murmur, diastolic murmur, rubs, gallop, clicks GI/Abdominal exam: Present: soft, normal bowel sounds. Absent: distended, tenderness, guarding, rebound, rigid Neurological exam: Present: alert, oriented X3, CN II-XII intact Psychiatric exam: Present: normal affect, normal mood Skin exam: Present: warm, dry, intact, normal color. Absent: rash <Tori Benitez - Last Filed: 07/24/18 03:49> Course <Benny Burden - Last Filed: 07/23/18 22:16> <Tori Benitez - Last Filed: 07/24/18 03:49> Vital Signs 07/23/18 07/23/18 07/23/18 18:59 20:00 20:08 Temperature 98.2 F Pulse Rate 101 H 79 80 Respiratory 18 Rate Blood Pressure 198/96 O2 Sat by Pulse 95 Oximetry 07/23/18 07/23/18 21:00 22:00 Temperature 97.8 F Pulse Rate 84 84 Respiratory 18 20 Rate Blood Pressure 155/76 165/80 O2 Sat by Pulse 98 94 L Oximetry - Reevaluation(s) Reevaluation #1: 07/23/18 22:16 And P supervision: I proceeded [id number] evaluation the patient I did an open his physical exam and the patient. She presented with complaints of some dizziness and also shortness of breath. These lesions consistent with a COPD exacerbation. I did review the imaging and reports. I do agree with the assessment and plan. Patient's week alert oriented we did discuss also the eighth for humidification of the air in her house as is very dry she states she' ll be discharged to follow-up with her doctor. (Benny Burden) EKG Findings - EKG Comments: EKG Findings:: EKG obtained at 1910 shows normal sinus rhythm with a ventricular rate of 98, MD interval 164, QRS duration 82, QT 372, QTc 474. No evidence of ST elevation or depression. <Tori Benitez - Last Filed: 07/24/18 03:49> Medical Decision Making - Lab Data Result diagrams: 07/23/18 19:40 07/23/18 19:40 <Benny Burden - Last Filed: 07/23/18 22:16> - Lab Data Result diagrams: 07/23/18 19:40 07/23/18 19:40 - Radiology Data Radiology results: report reviewed, image reviewed <Tori Benitez - Last Filed: 07/24/18 03:49> - Medical Decision Making 72-year-old female patient presented to the emergency department today for evaluation of intermittent dizzy spells. The patient states that throughout the day today she has had several episodes where she became dizzy and felt like she was given a pass out. Patient states that her breathing has been becoming worse as well and she has been very wheezy. Physical examination did reveal tight inspiratory and expiratory wheezing throughout all lung klein. She was neurologically intact with no focal deficits. Labs reviewed and were unremarkable. Chest x-ray showed no acute cardiopulmonary process. Patient was given meclizine. Upon reevaluation she is feeling better and is requesting discharge home. We did discuss that her symptoms could be related to low oxygen saturations and acute COPD exacerbation. She'll be treated with steroids. Patient does have nebulizer treatments at home but she hasn't been using them. She is instructed to use his 4-6 times per day as needed. She is instructed to follow-up with her primary care physician for recheck in 1-2 days. Return parameters were discussed in detail. She verbalizes understanding and agrees with this plan. (Tori Benitez) - Lab Data Lab Results 07/23/18 07/23/18 07/23/18 Range/Units 19:40 19:40 19:40 WBC 6.0 (3.8-10.6) k/uL RBC 4.37 (3.80-5.40) m/uL Hgb 12.5 (11.4-16.0) gm/dL Hct 37.6 (34.0-46.0) % MCV 86.2 (80.0-100.0) fL MCH 28.6 (25.0-35.0) pg MCHC 33.1 (31.0-37.0) g/dL RDW 13.5 (11.5-15.5) % Plt Count 240 (150-450) k/uL Neutrophils % 63 % Lymphocytes % 26 % Monocytes % 5 % Eosinophils % 5 % Basophils % 0 % Neutrophils # 3.8 (1.3-7.7) k/uL Lymphocytes # 1.5 (1.0-4.8) k/uL Monocytes # 0.3 (0-1.0) k/uL Eosinophils # 0.3 (0-0.7) k/uL Basophils # 0.0 (0-0.2) k/uL PT 9.7 (9.0-12.0) sec INR 1.0 (<1.2) APTT 24.3 (22.0-30.0) sec Sodium 141 (137-145) mmol/L Potassium 3.8 (3.5-5.1) mmol/L Chloride 106 (98-107) mmol/L Carbon Dioxide 25 (22-30) mmol/L Anion Gap 10 mmol/L BUN 14 (7-17) mg/dL Creatinine 0.81 (0.52-1.04) mg/dL Est GFR (CKD-EPI)AfAm 85 (>60 ml/min/1.73 sqM) Est GFR (CKD-EPI)NonAf 74 (>60 ml/min/1.73 sqM) Glucose 137 H (74-99) mg/dL Calcium 9.9 (8.4-10.2) mg/dL Total Bilirubin 0.2 (0.2-1.3) mg/dL AST 22 (14-36) U/L ALT 35 (9-52) U/L Alkaline Phosphatase 40 (38-126) U/L Total Creatine Kinase (30-135) U/L CK-MB (CK-2) (0.0-2.4) ng/mL CK-MB (CK-2) Rel Index Troponin I (0.000-0.034) ng/mL Total Protein 7.2 (6.3-8.2) g/dL Albumin 4.2 (3.5-5.0) g/dL Urine Color Urine Appearance (Clear) Urine pH (5.0-8.0) Ur Specific Bonita (1.001-1.035) Urine Protein (Negative) Urine Glucose (UA) (Negative) Urine Ketones (Negative) Urine Blood (Negative) Urine Nitrite (Negative) Urine Bilirubin (Negative) Urine Urobilinogen (<2.0) mg/dL Ur Leukocyte Esterase (Negative) 07/23/18 07/23/18 Range/Units 19:40 21:20 WBC (3.8-10.6) k/uL RBC (3.80-5.40) m/uL Hgb (11.4-16.0) gm/dL Hct (34.0-46.0) % MCV (80.0-100.0) fL MCH (25.0-35.0) pg MCHC (31.0-37.0) g/dL RDW (11.5-15.5) % Plt Count (150-450) k/uL Neutrophils % % Lymphocytes % % Monocytes % % Eosinophils % % Basophils % % Neutrophils # (1.3-7.7) k/uL Lymphocytes # (1.0-4.8) k/uL Monocytes # (0-1.0) k/uL Eosinophils # (0-0.7) k/uL Basophils # (0-0.2) k/uL PT (9.0-12.0) sec INR (<1.2) APTT (22.0-30.0) sec Sodium (137-145) mmol/L Potassium (3.5-5.1) mmol/L Chloride (98-107) mmol/L Carbon Dioxide (22-30) mmol/L Anion Gap mmol/L BUN (7-17) mg/dL Creatinine (0.52-1.04) mg/dL Est GFR (CKD-EPI)AfAm (>60 ml/min/1.73 sqM) Est GFR (CKD-EPI)NonAf (>60 ml/min/1.73 sqM) Glucose (74-99) mg/dL Calcium (8.4-10.2) mg/dL Total Bilirubin (0.2-1.3) mg/dL AST (14-36) U/L ALT (9-52) U/L Alkaline Phosphatase (38-126) U/L Total Creatine Kinase 151 H (30-135) U/L CK-MB (CK-2) 1.1 (0.0-2.4) ng/mL CK-MB (CK-2) Rel Index 0.7 Troponin I <0.012 (0.000-0.034) ng/mL Total Protein (6.3-8.2) g/dL Albumin (3.5-5.0) g/dL Urine Color Colorless Urine Appearance Clear (Clear) Urine pH 7.0 (5.0-8.0) Ur Specific Bon[place] 1.006 (1.001-1.035) Urine Protein Negative (Negative) Urine Glucose (UA) Negative (Negative) Urine Ketones Negative (Negative) Urine Blood Negative (Negative) Urine Nitrite Negative (Negative) Urine Bilirubin Negative (Negative) Urine Urobilinogen <2.0 (<2.0) mg/dL Ur Leukocyte Esterase Negative (Negative) - Radiology Data Two-view x-ray of the chest is obtained. Heart size is normal. Pulmonary vasculature is normal. The lungs are clear. Impression by Dr. Mclean shows no acute pulmonary process. (Tori Benitez) Disposition <BertramBenny - Last Filed: 07/23/18 22:16> Is patient prescribed a controlled substance at d/c from ED?: No Time of Disposition: 21:53 <Tori Benitez - Last Filed: 07/24/18 03:49> Clinical Impression: Dizziness, COPD exacerbation Disposition: HOME SELF-CARE Condition: Good Instructions: COPD (Chronic Obstructive Pulmonary Disease) (ED), Dizziness (ED) Additional Instructions: Take medications as directed. Take your blood pressure medication as directed. Follow-up with your primary care physician for recheck in 1-2 days. Return here immediately for any new, worsening, or concerning symptoms. Prescriptions: predniSONE 50 mg PO DAILY #5 tablet Referrals: Roshan Solis MD [Primary Care Provider] - 1-2 days
[2018-07-23 20:05] LABS: Basophils % (A) 0 %; Eosinophils # (A) 0.3 k/uL (0-0.7); Eosinophils % (A) 5 %; HCT 37.6 % (34.0-46.0); HGB 12.5 gm/dL (11.4-16.0); Lymphocytes # (A) 1.5 k/uL (1.0-4.8); Lymphocytes % (A) 26 %; MCH 28.6 pg (25.0-35.0); MCHC 33.1 g/dL (31.0-37.0); MCV 86.2 fL (80.0-100.0); Mean Platelet Volume 7.5; Monocytes # (A) 0.3 k/uL (0-1.0); Monocytes % (A) 5 %; Neutrophils # (A) 3.8 k/uL (1.3-7.7); Neutrophils % (A) 63 %; Platelet Count 240 k/uL (150-450); RBC 4.37 m/uL (3.80-5.40); RDW 13.5 % (11.5-15.5)
[2018-07-23 20:22] LABS: Albumin 4.2 g/dL (3.5-5.0); Calcium 9.9 mg/dL (8.4-10.2); Creatine Kinase 151 U/L (30-135); Potassium 3.8 mmol/L (3.5-5.1); Total Bilirubin 0.2 mg/dL (0.2-1.3); Total Protein 7.2 g/dL (6.3-8.2)
[2018-07-23 20:23] LABS: Partial Thromboplastin Time 24.3 sec (22.0-30.0); Prothrombin Time 9.7 sec (9.0-12.0)
[2018-07-23 20:35] LABS: Creatine Kinase MB 1.1 ng/mL (0.0-2.4); Troponin I <0.012 ng/mL (0.000-0.034)
--- NOTE | 2018-07-23 20:45 | XR ---
EXAMINATION TYPE: XR chest 2V DATE OF EXAM: 07/23/2018 COMPARISON: 09/22/2017 INDICATION: Pain, asthma, COPD TECHNIQUE: Frontal and lateral views of the chest are obtained. FINDINGS: The heart size is normal. The pulmonary vasculature is normal. The lungs are clear. IMPRESSION: 1. No acute pulmonary process.
[2018-07-23 21:04] VITALS: PULSE 84
[2018-07-23 21:29] LABS: Appearance,Urine Clear (Clear); Bilirubin,Urine Negative (Negative); Blood,Urine Negative (Negative); Color,Urine Colorless; Glucose,Urine (UA) Negative (Negative); Ketones,Urine Negative (Negative); Leukocyte Esterase,Urine Negative (Negative); Nitrite,Urine Negative (Negative); Protein,Urine Negative (Negative); Specific Gravity,Urine 1.006 (1.001-1.035); Urobilinogen,Urine <2.0 mg/dL (<2.0)
[2018-07-23 22:05] VITALS: BP 165/80; RESP 20; TEMP 97.8
== END 2018-07-23 22:20 | disposition home or self-care (01) ==
LOC: EC 18:56
DX: J44.1 Chronic obstructive pulmonary disease with (acute) exacerbation (principal); R42 Dizziness and giddiness; I10 Essential (primary) hypertension; Z79.899 Other long term (current) drug therapy; Z91.018 Allergy to other foods
CPT/HCPCS: 36415; 94640; 93005; 80053; 82550; 82553; 84484; 85025; 85610; 85730; 81003; 71046; 99284; 96374; 96361 ×2; J2930

== ENCOUNTER 2019-06-21 17:01 | Emergency (ER) | payer MEDICARE, OTHER ==
[2019-06-21] MEDS ORDERED: SODIUM CHLORIDE 0.9% 1,000 ML IV STA (17:29)
[2019-06-21] MEDS ORDERED: ALBUTEROL NEBULIZED 2.5 MG/3 ML INHALATION STA (17:29)
[2019-06-21] MEDS ORDERED: IPRATROPIUM 0.5 MG/2.5 ML NEBU INHALATION STA (17:29)
[2019-06-21] MEDS ORDERED: methylPREDNISolone SOD SUCCI 125 MG/2 ML VIAL IV STA (17:29)
[2019-06-21] MEDS ORDERED: KETOROLAC 30 MG/ML 1 ML VIAL IVP STA (17:30)
--- NOTE | 2019-06-21 17:33 | ED ---
Chest Pain HPI - General Chief Complaint: Chest Pain Stated Complaint: NICOLAS, chest pain Time Seen by Provider: 06/21/19 17:10 Source: patient, old records reviewed Mode of arrival: ambulatory Limitations: no limitations - History of Present Illness Initial Comments: This is a 73-year-old female the ER for evaluation shortness a for evaluation of cough congestion with history of asthma, patient also complaining of significant chest pain especially with taking a deep breath. Patient states he does have for breathing treatments and inhaler and storage and unable to do. She'll for a few days symptoms are progressively worsening. Denying any fevers. No chest pain unless with taking a deep breath. No trauma. No recent travel history or sick contacts. Patient denies history of smoking has history of high blood pressure. A she also has not been taking blood pressure medication secondary to not able to access medications currently MD Complaint: chest pain (Taking a deep breath) -: days(s) (2) Onset: during rest, during exertion Pain Location: substernal, left chest Pain Radiation: back Severity: moderate Severity scale (1-10): 7 Quality: sharp Consistency: intermittent Improves With: nothing Worsens With: exertion, inspiration Context: new medications (Patient is not been taking medications) Anginal Symptoms: diaphoresis, dyspnea Other Symptoms: cough Treatments Prior to Arrival: none - Related Data Home Medications Medication Instructions Recorded Confirmed Albuterol Nebulized [Ventolin 2.5 mg INHALATION RT-Q4H PRN 12/26/16 06/21/19 Nebulized] Fluticasone Nasal Wel[place] [Flonase 2 spr EA NOSTRIL BID PRN 09/26/18 06/21/19 Nasal Weldon] Lisinopril 40 mg PO DAILY 06/21/19 06/21/19 Previous Rx's Medication Instructions Recorded Albuterol Inhaler [Ventolin Hfa 1 - 2 puff INHALATION RT-Q6H PRN #1 05/06/17 Inhaler] Budesonide/Formoterol Fumarate 2 puff INHALATION RT-BID #1 puff 05/06/17 [Symbicort 80-4.5 Mcg Inhaler] Allergies Allergy/AdvReac Type Severity Reaction Status Date / Time blue dye AdvReac Asthma Verified 06/21/19 18:22 Exacerbation red dye AdvReac Asthma Verified 06/21/19 18:22 Exacerbation ARTIFICIAL SWEETNERS AdvReac Asthma Uncoded 06/21/19 18:22 Exacerbation Review of Systems ROS Statement: Those systems with pertinent positive or pertinent negative responses have been documented in the HPI. ROS Other: All systems not noted in ROS Statement are negative. EKG Findings - EKG Comments: EKG Findings:: EKG shows normal sinus rhythm rate of 92, MI 152, QRS 80, QTC 469 Past Medical History Past Medical History: Asthma, COPD, GERD/Reflux, Hypertension, Pneumonia Additional Past Medical History / Comment(s): seasonal allergies. History of Any Multi-Drug Resistant Organisms: None Reported Past Surgical History: No Surgical Hx Reported Past Psychological History: Anxiety, Depression Smoking Status: Never smoker Past Alcohol Use History: None Reported Past Drug Use History: None Reported - Past Family History Mother Family Medical History: Thyroid Disorder General Exam Limitations: no limitations General appearance: alert, in no apparent distress Head exam: Present: atraumatic, normocephalic, normal inspection Eye exam: Present: normal appearance, EOMI. Absent: scleral icterus, conjunctival injection, periorbital swelling ENT exam: Present: normal exam, mucous membranes dry Neck exam: Present: normal inspection. Absent: tenderness, meningismus, lymphadenopathy Respiratory exam: Present: respiratory distress, wheezes, accessory muscle use, decreased breath sounds, prolonged expiratory. Absent: rales, rhonchi, stridor Cardiovascular Exam: Present: regular rate, normal rhythm, normal heart sounds. Absent: systolic murmur, diastolic murmur, rubs, gallop, clicks GI/Abdominal exam: Present: soft, normal bowel sounds. Absent: distended, tenderness, guarding, rebound, rigid Extremities exam: Present: normal inspection, full ROM, normal capillary refill. Absent: tenderness, pedal edema, joint swelling, calf tenderness Back exam: Present: normal inspection Neurological exam: Present: alert, oriented X3, CN II-XII intact Psychiatric exam: Present: normal affect, normal mood Skin exam: Present: warm, dry, intact, normal color. Absent: rash Course Vital Signs 06/21/19 06/21/19 06/21/19 17:06 17:44 17:59 Temperature 98.3 F Pulse Rate 95 84 82 Respiratory 24 Rate Blood Pressure 192/94 O2 Sat by Pulse 92 L Oximetry 06/21/19 06/21/19 06/21/19 18:19 19:20 20:02 Temperature Pulse Rate 87 Respiratory 16 86 H Rate Blood Pressure 146/65 208/94 162/88 O2 Sat by Pulse 94 L 95 90 L Oximetry 06/21/19 20:30 Temperature Pulse Rate 67 Respiratory 16 Rate Blood Pressure 162/88 O2 Sat by Pulse 94 L Oximetry - Reevaluation(s) Reevaluation #1: 06/21/19 17:33 Medical records reviewed Reevaluation #2: 06/21/19 20:47 Patient symptoms are significantly improved after breathing treatments and symptom management here in the ER Reevaluation #3: 06/21/19 20:47 Spoke with patient at length regarding findings including lung mass as well as pneumonia and UTI. given significant counseling follow-up with front office clerk is now is in hospital currently she states she has to management tingling on her life, transitioning from home. Traveling. Patient will be discharged home Reevaluation #4: 06/21/19 20:48 Studies CTA chest negative for PE shows normal possible mass, CT abdomen pelvis negative for acute disease Chest Pain MDM - MDM 73 female the ER for evaluation chest pain shortness of breath. COPD exacerbation on top of pneumonia urinary tract infection. Symptoms are improving here in the ER. Patient given counseling wants findings and imaging. Encouraged to stay in the hospital she adamantly refuses. Patient will be discharged home Disposition Clinical Impression: CAP (community acquired pneumonia), Chest pain, COPD exacerbation, UTI (urinary tract infection), Lung mass Disposition: HOME SELF-CARE Condition: Fair Instructions (If sedation given, give patient instructions): Community Acquired Pneumonia (ED), Urinary Tract Infection in Women (ED) Is patient prescribed a controlled substance at d/c from ED?: No Referrals: Roshan Solis MD [Primary Care Provider] - 1-2 days
[2019-06-21 18:13] LABS: Basophils # (A) 0.1 k/uL (0-0.2); Basophils % (A) 2 %; Eosinophils # (A) 0.3 k/uL (0-0.7); Eosinophils % (A) 6 %; HCT 38.8 % (34.0-46.0); HGB 12.5 gm/dL (11.4-16.0); Lymphocytes # (A) 0.8 k/uL (1.0-4.8); Lymphocytes % (A) 16 %; MCH 29.9 pg (25.0-35.0); MCHC 32.3 g/dL (31.0-37.0); MCV 92.9 fL (80.0-100.0); Mean Platelet Volume 7.2; Monocytes # (A) 0.3 k/uL (0-1.0); Monocytes % (A) 6 %; Neutrophils # (A) 3.4 k/uL (1.3-7.7); Neutrophils % (A) 69 %; Platelet Count 240 k/uL (150-450); RBC 4.17 m/uL (3.80-5.40)
[2019-06-21 18:22] LABS: Albumin 3.8 g/dL (3.5-5.0); Calcium 9.5 mg/dL (8.4-10.2); Magnesium 2.1 mg/dL (1.6-2.3); Potassium 3.9 mmol/L (3.5-5.1); Total Bilirubin 0.2 mg/dL (0.2-1.3); Total Protein 6.9 g/dL (6.3-8.2)
[2019-06-21 18:25] LABS: INR 0.9 (<1.2); Partial Thromboplastin Time 25.4 sec (22.0-30.0); Prothrombin Time 9.9 sec (9.0-12.0)
[2019-06-21 18:26] LABS: Appearance,Urine Cloudy (Clear); Bacteria,Urine Many /hpf; Bilirubin,Urine Negative (Negative); Blood,Urine Negative (Negative); Color,Urine Light Yellow; Glucose,Urine (UA) Negative (Negative); Ketones,Urine Negative (Negative); Leukocyte Esterase,Urine Large (Negative); Mucus,Urine Rare /hpf; Nitrite,Urine Positive (Negative); PH, Urine 6.5 (5.0-8.0); Protein,Urine Negative (Negative); RBC,Urine 3 /hpf (0-5); Specific Gravity,Urine 1.009 (1.001-1.035); Squamous Epithelial Cell,Urine 1 /hpf (0-4); Urobilinogen,Urine <2.0 mg/dL (<2.0)
[2019-06-21 18:40] LABS: D-Dimer 0.95 mg/L FEU (<0.60)
--- NOTE | 2019-06-21 19:21 | CT ---
EXAM: CT Abdomen and Pelvis With Intravenous Contrast CLINICAL HISTORY: ITS.REASON CT Reason: pain TECHNIQUE: Axial computed tomography images of the abdomen and pelvis with intravenous contrast. CTDI is 12 mGy and DLP is 1416.7 mGy-cm. This CT exam was performed using one or more of the following dose reduction techniques: automated exposure control, adjustment of the mA and/or kV according to patient size, and/or use of iterative reconstruction technique. COMPARISON: No relevant prior studies available. FINDINGS: Hepatomegaly with parenchymal steatosis. Relative enlargement of the left and caudate lobes and contour lobulation suggesting mild cirrhosis. No clear findings of portal hypertension. No ascites. Bilateral renal hypodensities are too small to characterize, but most likely reflect cysts. There is no hydronephrosis. The biliary tree, pancreas, spleen, and adrenal glands are within normal limits. Colonic diverticula without evidence of diverticulitis. There is no bowel obstruction or perforation. The appendix is unremarkable. Urinary bladder wall thickening be correlated for symptoms of cystitis. Minimal aortic atherosclerosis. No aneurysm. Small fatty umbilical and left inguinal hernias. Lumbar dextrocurvature, apex at L2-3. Left L1 and right L2 and L3 lateral listhesis. Grade 1 anterolisthesis and advanced spondylosis at multiple levels. No acute fracture. IMPRESSION: Enlarged fatty liver with cirrhotic changes. No ascites or evidence of portal hypertension. Urinary bladder wall thickening should be correlated for symptoms of cystitis. Renal hypodensities that are too small to characterize. Colonic diverticula without diverticulitis. Incidental findings as detailed above.
--- NOTE | 2019-06-21 19:29 | CT ---
EXAM: CT Angiography Chest With Intravenous Contrast CLINICAL HISTORY: ITS.REASON CT Reason: pain TECHNIQUE: Axial computed tomographic angiography images of the chest with intravenous contrast. CTDI is 12 mGy and DLP is 1416.7 mGy-cm. This CT exam was performed using one or more of the following dose reduction techniques: automated exposure control, adjustment of the mA and/or kV according to patient size, and/or use of iterative reconstruction technique. MIP reconstructed images were created and reviewed. COMPARISON: 05/05/17 FINDINGS: There is no pulmonary embolism. Atherosclerotic calcifications of the aortic arch and descending segment. No dissection or other acute syndrome. No aneurysm. The heart is normal in size, but there is evidence of left ventricular muscular hypertrophy. Trace pericardial effusion. Peripheral consolidation in the posterior basal right lower lobe could reflect pneumonitis. However, this is somewhat masslike, measuring 2.6 x 2.2 cm. Recommend a follow-up CT in 2-3 months to assess for changes. Mild S-shaped curvature of the thoracic spine. Mild multilevel spondylosis. No acute fracture. IMPRESSION: 2.6 cm consolidation in the right lower lobe could reflect pneumonitis. Neoplasm is not excluded. Recommend follow-up CT in 2-3 months. Would not entertain pulmonary infarct as there is no PE here or elsewhere. Heart demonstrates left ventricular hypertrophy and trace pericardial fluid.
[2019-06-21] MEDS ORDERED: AZITHROMYCIN 500 MG TAB PO STA (20:46)
[2019-06-21 21:04] VITALS: BP 176/87; PULSE 78; RESP 18; TEMP 98
== END 2019-06-21 21:03 | disposition home or self-care (01) ==
LOC: EC 17:01
DX: J44.0 Chronic obstructive pulmonary disease with (acute) lower respiratory infection (principal); J18.9 Pneumonia, unspecified organism; J44.1 Chronic obstructive pulmonary disease with (acute) exacerbation; N39.0 Urinary tract infection, site not specified; R91.8 Other nonspecific abnormal finding of lung field; I10 Essential (primary) hypertension; Z91.02 Food additives allergy status; Z91.048 Other nonmedicinal substance allergy status; Z79.51 Long term (current) use of inhaled steroids; Z79.899 Other long term (current) drug therapy; Z53.20 Procedure and treatment not carried out because of patient's decision for unspecified reasons
CPT/HCPCS: 36415; 94640; 93005; 85379; 83880; 80053; 82550; 83735; 84484; 85025; 85610; 85730; 81001; 87086; 87077; 87186; 71275; 74177; 99285; 96365; 96375 ×2; 96361; J2930; J0696; J1885; Q9967

== ENCOUNTER 2021-12-28 16:26 | Emergency (ER) | payer MEDICARE, OTHER ==
[2021-12-28 16:54] VITALS: TEMP 100.3
[2021-12-28] MEDS ORDERED: IPRATROPIUM-ALBUTEROL 3 ML NEB INHALATION STA (17:01)
[2021-12-28] MEDS ORDERED: methylPREDNISolone SOD SUCCI 125 MG/2 ML VIAL IV STA (17:01)
[2021-12-28] MEDS ORDERED: ACETAMINOPHEN TAB 500 MG TAB PO STA (17:02)
--- NOTE | 2021-12-28 17:06 | ED ---
General Adult HPI - General Chief complaint: Shortness of Breath Stated complaint: Congestion, COPD Time Seen by Provider: 12/28/21 16:52 Source: patient, RN notes reviewed Mode of arrival: ambulatory Limitations: no limitations - History of Present Illness Initial comments: Patient is a pleasant 76-year-old female presenting to the emergency department with difficulty breathing. Onset of symptoms was close to 2 weeks ago. Patient does have cough with productive white sputum. Patient does feel short of breath and has had wheezing. Patient states she does have bad ALLERGIES. Patient also has asthma and COPD. Patient is a nonsmoker but previously exposed to smoke. No leg pain or leg swelling. Patient has felt chilled last couple of days. - Related Data Home Medications Medication Instructions Recorded Confirmed Aspirin EC [Ecotrin Low Dose] 81 mg PO DAILY 12/28/21 12/28/21 Fexofenadine HCl [Valeria Allergy] 180 mg PO DAILY 12/28/21 12/28/21 guaiFENesin SYRUP 100MG/5ML 200 mg PO HS 12/28/21 12/28/21 [Robitussin] Previous Rx's Medication Instructions Recorded Azithromycin [Zithromax Z-pack (6 250 mg PO DIRECTED #6 tab 12/28/21 tabs)] predniSONE [Deltasone] 20 mg PO BID #10 tab 12/28/21 Allergies Allergy/AdvReac Type Severity Reaction Status Date / Time blue dye AdvReac Asthma Verified 12/28/21 18:35 Exacerbation red dye AdvReac Asthma Verified 12/28/21 18:35 Exacerbation ARTIFICIAL SWEETNERS AdvReac Asthma Uncoded 12/28/21 18:35 Exacerbation Review of Systems ROS Statement: Those systems with pertinent positive or pertinent negative responses have been documented in the HPI. ROS Other: All systems not noted in ROS Statement are negative. Constitutional: Reports: chills Eyes: Denies: eye pain ENT: Denies: ear pain Respiratory: Reports: cough, dyspnea Cardiovascular: Denies: chest pain Endocrine: Reports: fatigue Gastrointestinal: Denies: abdominal pain Genitourinary: Denies: dysuria Musculoskeletal: Denies: back pain Skin: Denies: rash Neurological: Denies: weakness Past Medical History Past Medical History: Asthma, COPD, GERD/Reflux, Hypertension, Pneumonia Additional Past Medical History / Comment(s): seasonal allergies. History of Any Multi-Drug Resistant Organisms: None Reported Past Surgical History: No Surgical Hx Reported Past Psychological History: Anxiety, Depression Smoking Status: Never smoker Past Alcohol Use History: None Reported Past Drug Use History: None Reported - Past Family History Mother Family Medical History: Thyroid Disorder General Exam Limitations: no limitations General appearance: alert, in no apparent distress Head exam: Present: normocephalic Eye exam: Present: normal appearance Neck exam: Present: normal inspection Respiratory exam: Present: wheezes Cardiovascular Exam: Present: tachycardia GI/Abdominal exam: Present: soft. Absent: tenderness Extremities exam: Present: normal inspection. Absent: pedal edema, calf tenderness Neurological exam: Present: alert Psychiatric exam: Present: normal affect, normal mood Skin exam: Present: normal color Course Vital Signs 12/28/21 12/28/21 12/28/21 16:41 16:54 17:35 Temperature 97 F L 100.3 F H Pulse Rate 114 H 98 Respiratory 18 18 Rate Blood Pressure 184/97 180/93 O2 Sat by Pulse 95 96 Oximetry EKG Findings - EKG Comments: EKG Findings:: Sinus tachycardia 108. ND 166. QRS 81. QT 349. QTc 412. No rmal axis. Normal QRS. No acute ST change. Medical Decision Making - Medical Decision Making Patient reevaluated and feeling much better. Patient requests discharge home. Patient discussion was had regarding admission however she refuses. Patient does not qualify for oral medication for: 19 secondary to onset 14 days ago. Antibodies are not available. Patient is updated on results and need for close follow-up - Lab Data Result diagrams: 12/28/21 17:13 12/28/21 17:13 Lab Results 12/28/21 12/28/21 12/28/21 Range/Units 17:13 17:13 17:13 WBC 6.9 (3.8-10.6) k/uL RBC 4.53 (3.80-5.40) m/uL Hgb 12.6 (11.4-16.0) gm/dL Hct 39.9 (34.0-46.0) % MCV 88.2 (80.0-100.0) fL MCH 27.9 (25.0-35.0) pg MCHC 31.6 (31.0-37.0) g/dL RDW 12.8 (11.5-15.5) % Plt Count 231 (150-450) k/uL MPV 7.9 Neutrophils % 72 % Lymphocytes % 16 % Monocytes % 6 % Eosinophils % 3 % Basophils % 2 % Neutrophils # 5.0 (1.3-7.7) k/uL Lymphocytes # 1.1 (1.0-4.8) k/uL Monocytes # 0.4 (0-1.0) k/uL Eosinophils # 0.2 (0-0.7) k/uL Basophils # 0.1 (0-0.2) k/uL PT 9.6 (9.0-12.0) sec INR 0.9 (<1.2) APTT 21.2 L (22.0-30.0) sec Sodium 137 (137-145) mmol/L Potassium 4.0 (3.5-5.1) mmol/L Chloride 102 (98-107) mmol/L Carbon Dioxide 25 (22-30) mmol/L Anion Gap 10 mmol/L BUN 15 (7-17) mg/dL Creatinine 0.81 (0.52-1.04) mg/dL Est GFR (CKD-EPI)AfAm 83 (>60 ml/min/1.73 sqM) Est GFR (CKD-EPI)NonAf 72 (>60 ml/min/1.73 sqM) Glucose 112 H (74-99) mg/dL Plasma Lactic Acid Omega (0.7-2.0) mmol/L Calcium 9.1 (8.4-10.2) mg/dL Total Bilirubin 0.4 (0.2-1.3) mg/dL AST 21 (14-36) U/L ALT 17 (4-34) U/L Alkaline Phosphatase 54 (38-126) U/L Troponin I (0.000-0.034) ng/mL NT-Pro-B Natriuret Pep pg/mL Total Protein 7.7 (6.3-8.2) g/dL Albumin 4.4 (3.5-5.0) g/dL Coronavirus (PCR) (Not Detectd) Influenza Type A RNA (Not Detectd) Influenza Type B (PCR) (Not Detectd) 12/28/21 12/28/21 12/28/21 Range/Units 17:13 17:13 17:13 WBC (3.8-10.6) k/uL RBC (3.80-5.40) m/uL Hgb (11.4-16.0) gm/dL Hct (34.0-46.0) % MCV (80.0-100.0) fL MCH (25.0-35.0) pg MCHC (31.0-37.0) g/dL RDW (11.5-15.5) % Plt Count (150-450) k/uL MPV Neutrophils % % Lymphocytes % % Monocytes % % Eosinophils % % Basophils % % Neutrophils # (1.3-7.7) k/uL Lymphocytes # (1.0-4.8) k/uL Monocytes # (0-1.0) k/uL Eosinophils # (0-0.7) k/uL Basophils # (0-0.2) k/uL PT (9.0-12.0) sec INR (<1.2) APTT (22.0-30.0) sec Sodium (137-145) mmol/L Potassium (3.5-5.1) mmol/L Chloride (98-107) mmol/L Carbon Dioxide (22-30) mmol/L Anion Gap mmol/L BUN (7-17) mg/dL Creatinine (0.52-1.04) mg/dL Est GFR (CKD-EPI)AfAm (>60 ml/min/1.73 sqM) Est GFR (CKD-EPI)NonAf (>60 ml/min/1.73 sqM) Glucose (74-99) mg/dL Plasma Lactic Acid Omega 0.8 (0.7-2.0) mmol/L Calcium (8.4-10.2) mg/dL Total Bilirubin (0.2-1.3) mg/dL AST (14-36) U/L ALT (4-34) U/L Alkaline Phosphatase (38-126) U/L Troponin I <0.012 (0.000-0.034) ng/mL NT-Pro-B Natriuret Pep 209 pg/mL Total Protein (6.3-8.2) g/dL Albumin (3.5-5.0) g/dL Coronavirus (PCR) (Not Detectd) Influenza Type A RNA (Not Detectd) Influenza Type B (PCR) (Not Detectd) 12/28/21 12/28/21 Range/Units 17:13 17:13 WBC (3.8-10.6) k/uL RBC (3.80-5.40) m/uL Hgb (11.4-16.0) gm/dL Hct (34.0-46.0) % MCV (80.0-100.0) fL MCH (25.0-35.0) pg MCHC (31.0-37.0) g/dL RDW (11.5-15.5) % Plt Count (150-450) k/uL MPV Neutrophils % % Lymphocytes % % Monocytes % % Eosinophils % % Basophils % % Neutrophils # (1.3-7.7) k/uL Lymphocytes # (1.0-4.8) k/uL Monocytes # (0-1.0) k/uL Eosinophils # (0-0.7) k/uL Basophils # (0-0.2) k/uL PT (9.0-12.0) sec INR (<1.2) APTT (22.0-30.0) sec Sodium (137-145) mmol/L Potassium (3.5-5.1) mmol/L Chloride (98-107) mmol/L Carbon Dioxide (22-30) mmol/L Anion Gap mmol/L BUN (7-17) mg/dL Creatinine (0.52-1.04) mg/dL Est GFR (CKD-EPI)AfAm (>60 ml/min/1.73 sqM) Est GFR (CKD-EPI)NonAf (>60 ml/min/1.73 sqM) Glucose (74-99) mg/dL Plasma Lactic Acid Omega (0.7-2.0) mmol/L Calcium (8.4-10.2) mg/dL Total Bilirubin (0.2-1.3) mg/dL AST (14-36) U/L ALT (4-34) U/L Alkaline Phosphatase (38-126) U/L Troponin I (0.000-0.034) ng/mL NT-Pro-B Natriuret Pep pg/mL Total Protein (6.3-8.2) g/dL Albumin (3.5-5.0) g/dL Coronavirus (PCR) Detected A (Not Detectd) Influenza Type A RNA Not Detected (Not Detectd) Influenza Type B (PCR) Not Detected (Not Detectd) - Radiology Data Radiology results: image reviewed (Chest x-ray does show left lower lobe infiltrate) Disposition Clinical Impression: COVID-19, Pneumonia Disposition: HOME SELF-CARE Condition: Stable Instructions (If sedation given, give patient instructions): Bacterial Pneumonia (ED), COVID-19 (Coronavirus Disease 2019) (ED) Additional Instructions: Prescription for steroids and antibiotics have been sent to pharmacy. Please do follow-up to primary care physician in the next day or 2 for recheck. Return for difficulty breathing, fevers, worsening or changing symptoms or any other concerns. Prescriptions: predniSONE [Deltasone] 20 mg PO BID #10 tab Azithromycin [Zithromax Z-pack (6 tabs)] 250 mg PO DIRECTED #6 tab Is patient prescribed a controlled substance at d/c from ED?: No Referrals: Roshan Solis MD [STAFF PHYSICIAN] - 1-2 days Time of Disposition: 19:13
[2021-12-28 17:22] LABS: Basophils # (A) 0.1 k/uL (0-0.2); Basophils % (A) 2 %; Eosinophils # (A) 0.2 k/uL (0-0.7); Eosinophils % (A) 3 %; HCT 39.9 % (34.0-46.0); HGB 12.6 gm/dL (11.4-16.0); Lymphocytes # (A) 1.1 k/uL (1.0-4.8); Lymphocytes % (A) 16 %; MCH 27.9 pg (25.0-35.0); MCHC 31.6 g/dL (31.0-37.0); MCV 88.2 fL (80.0-100.0); Mean Platelet Volume 7.9; Monocytes # (A) 0.4 k/uL (0-1.0); Monocytes % (A) 6 %; Neutrophils % (A) 72 %; Platelet Count 231 k/uL (150-450); RBC 4.53 m/uL (3.80-5.40); RDW 12.8 % (11.5-15.5); WBC 6.9 k/uL (3.8-10.6)
[2021-12-28 17:35] LABS: Albumin 4.4 g/dL (3.5-5.0); Calcium 9.1 mg/dL (8.4-10.2); Total Bilirubin 0.4 mg/dL (0.2-1.3); Total Protein 7.7 g/dL (6.3-8.2)
[2021-12-28] MEDS ORDERED: ALBUTEROL HFA INHALER INHALATION STA (17:38)
[2021-12-28 17:43] LABS: INR 0.9 (<1.2); Partial Thromboplastin Time 21.2 sec (22.0-30.0); Prothrombin Time 9.6 sec (9.0-12.0)
--- NOTE | 2021-12-28 17:54 | XR ---
EXAMINATION TYPE: XR chest 2V DATE OF EXAM: 12/28/2021 COMPARISON: 09/26/2018 HISTORY: Difficulty breathing TECHNIQUE: 2 views FINDINGS: There is poorly marginated 4 cm infiltrate in the left midlung field. This is apparently in the superior segment of the left lower lobe. The right lung is clear. Heart size is normal. There ar e no hilar masses. IMPRESSION: There is some left lower lobe pneumonia which is new compared to the old exam. Normal hea rt.
[2021-12-28 19:27] VITALS: BP 160/84; PULSE 94; RESP 20
== END 2021-12-28 19:34 | disposition home or self-care (01) ==
LOC: EC 16:26
DX: U07.1 COVID-19 (principal); J18.9 Pneumonia, unspecified organism; J44.9 Chronic obstructive pulmonary disease, unspecified; K21.9 Gastro-esophageal reflux disease without esophagitis; I10 Essential (primary) hypertension; F41.9 Anxiety disorder, unspecified; F32.A Depression, unspecified; Z20.822 Contact with and (suspected) exposure to COVID-19; Z79.82 Long term (current) use of aspirin
CPT/HCPCS: 99285; 96374; 36415; 94640; 93005; 83880; 80053; 83605; 84484; 85025; 85610; 85730; 87502; 87635; 71046; J2930

== ENCOUNTER 2023-03-22 21:58 | Emergency (ER) | payer MEDICARE, OTHER ==
[2023-03-22 22:03] VITALS: RESP 18; TEMP 98.3
[2023-03-22] MEDS ORDERED: LIDOCAINE 1% INJ 10MG/ML (30 ML VIAL-PF) SQ ONE (22:29)
--- NOTE | 2023-03-22 23:34 | CT ---
EXAMINATION TYPE: CT brain peter jenkins con DATE OF EXAM: 03/22/2023 COMPARISON: None HISTORY: fall CT DLP: 1544.2 mGycm, Automated exposure control for dose reduction was used. CONTRAST: Patient injected with 0 mL of Isovue 300. CT of the brain is performed utilizing 3 mm thick sections through the posterior fossa and 3 mm thick sections through the remaining calvarium. Study is performed within 24 hours of arrival to the hospital. No abnormal hyperdensity is present to suggest an acute intracranial hemorrhage. No mass lesion is evident. No acute infarcts are evident. Periventricular white matter hypodensity is present, likely on the ba sis of chronic white matter ischemic changes. Ventricles and sulci are appropriate for the patient age. Paranasal sinuses and mastoid air cells within the [id number] are clear. IMPRESSIONS: 1. Chronic appearing periventricular white matter ischemic-type changes. 2. No acute intracranial process. Follow-up MRI can be performed as clinically indicated. CT cervical spine. COMPARISON: None CT of the cervical spine is performed in the axial plane at 2 mm thick sections. Reconstructed image s in the coronal, and sagittal plane are reviewed on the computer. No acute fractures are evident. Vertebral body alignment is straightened. There is loss of disc height at C5-6 C6-7 and milder degree C7-T1. Some posterior endplate spurring i s present at C5-6 with mild anterior thecal sac compression. No spinal canal stenosis is present. Ant erior vertebral body spurring is present C3-C7. Vertebral body heights are preserved. No spinal canal stenosis is evident. Facet changes are evident greater on the right. Uncovertebral joint hypertrophy is present with refugio inal stenosis notably C5-6 and C6-7 bilaterally. IMPRESSIONS: 1. No acute osseous abnormality cervical spine. 2. Degenerative disc changes greatest at C5-6 C6-7. 3. Endplate spurring at C5-6 with mild anterior thecal sac compression. 4. Multilevel foraminal stenosis from uncovertebral joint hypertrophy.
[2023-03-22] MEDS ORDERED: DIPH,PERTUS(ACELL)TETVAC-LF 0.5 ML VIAL IM ONE (23:46)
--- NOTE | 2023-03-22 23:47 | ED ---
Fall HPI - General Chief Complaint: Fall Stated Complaint: Head injury Time Seen by Provider: 03/22/23 22:13 Source: EMS Mode of arrival: EMS - History of Present Illness Initial Comments: 77-year-old female presenting with chief complaint of head injury. Patient has been drinking this evening. She states that she fell over and hit the left side of her head on a rock outside. Unable to determine whether the patient was squatting and then follow over or tripped while walking. She denies any loss of consciousness and no blood thinners. There is a laceration to the scalp and bleeding is well-controlled at this time. Does not remember when her last tetanus was. No nausea, vomiting, dizziness, numbness, tingling, weakness. - Related Data Home Medications Medication Instructions Recorded Confirmed Aspirin EC [Ecotrin Low Dose] 81 mg PO DAILY 12/28/21 12/28/21 Fexofenadine HCl [Valeria Allergy] 180 mg PO DAILY 12/28/21 12/28/21 guaiFENesin SYRUP 100MG/5ML 200 mg PO HS 12/28/21 12/28/21 [Robitussin] Previous Rx's Medication Instructions Recorded Albuterol Sulfate [Albuterol 2 puff INHALATION Q6H PRN #8.5 gm 12/28/21 Sulfate Hfa] Azithromycin [Zithromax Z-pack (6 250 mg PO DIRECTED #6 tab 12/28/21 tabs)] predniSONE [Deltasone] 20 mg PO BID #10 tab 12/28/21 Allergies Allergy/AdvReac Type Severity Reaction Status Date / Time blue dye AdvReac Asthma Verified 12/28/21 18:35 Exacerbation red dye AdvReac Asthma Verified 12/28/21 18:35 Exacerbation ARTIFICIAL SWEETNERS AdvReac Asthma Uncoded 12/28/21 18:35 Exacerbation Review of Systems ROS Statement: Those systems with pertinent positive or pertinent negative responses have been documented in the HPI. ROS Other: All systems not noted in ROS Statement are negative. Past Medical History Past Medical History: Asthma, COPD, GERD/Reflux, Hypertension, Pneumonia Additional Past Medical History / Comment(s): seasonal allergies. History of Any Multi-Drug Resistant Organisms: None Reported Past Surgical History: No Surgical Hx Reported Past Psychological History: Anxiety, Depression Smoking Status: Never smoker Past Alcohol Use History: Occasional Past Drug Use History: None Reported - Past Family History Mother Family Medical History: Thyroid Disorder General Exam Limitations: altered mental status General appearance: alert, in no apparent distress Expanded Head exam: Present: laceration Eye exam: Present: normal appearance, PERRL, EOMI. Absent: scleral icterus, conjunctival injection, periorbital swelling Neck exam: Present: normal inspection, full ROM Respiratory exam: Present: normal lung sounds bilaterally. Absent: respiratory distress, wheezes, rales, rhonchi, stridor Cardiovascular Exam: Present: regular rate, normal rhythm, normal heart sounds. Absent: systolic murmur, diastolic murmur, rubs, gallop, clicks Neurological exam: Present: alert, altered Psychiatric exam: Present: normal affect, normal mood Expanded Type of lesion: Present: laceration Course Vital Signs 03/22/23 03/22/23 21:59 23:53 Temperature 98.3 F Pulse Rate 93 78 Respiratory 18 18 Rate Blood Pressure 196/110 148/84 O2 Sat by Pulse 96 97 Oximetry Procedures - Laceration Laceration #1 Consent Obtained: verbal consent Indication: laceration Site: scalp Size (cm): 4 Description: linear Depth: simple, single layer Anesthetic Used: lidocaine 1%, without epi Anesthesia Technique: local infiltration Pre-repair: wound explored Type of Sutures: other (hernando) Number of Sutures: 5 Patient Tolerated Procedure: well Medical Decision Making - Medical Decision Making Was pt. sent in by a medical professional or institution (MALLY Winters, TEST FIXTURE ASSEMBLER, urgent care, hospital, or fdc...) When possible be specific @ -No Did you speak to anyone other than the patient for history (EMS, parent, family, police, friend...)? What history was obtained from this source @ -No Did you review nursing and triage notes (agree or disagree)? Why? @ -I reviewed and agree with nursing and triage notes Were old charts reviewed (outside hosp., previous admission, EMS record, old EKG, old radiological studies, urgent care reports/EKG's, fdc records)? Report findings @ -No old charts were reviewed Differential Diagnosis (chest pain, altered mental status, abdominal pain women, abdominal pain men, vaginal bleeding, weakness, fever, dyspnea, syncope, headache, dizziness, GI bleed, back pain, seizure, CVA, palpatations, mental health, musculoskeletal)? @ -Differential includes uncomplicated scalp laceration, intracranial hemorrhage, cervical spine fracture, this is not an all inclusive list EKG interpreted by me (3pts min.). @ -As above X-rays interpreted by me (1pt min.). @ -None done CT interpreted by me (1pt min.). @ -CT shows no acute intracranial process and no fracture of the cervical spine U/S interpreted by me (1pt. min.). @ -None done What testing was considered but not performed or refused? (CT, X-rays, U/S, labs)? Why? @ -None What meds were considered but not given or refused? Why? @ -None Did you discuss the management of the patient with other professionals (professionals i.e. , PA, TEST FIXTURE ASSEMBLER, lab, RT, psych nurse, social worker psychiatric, corporation lawyer, teacher, security police officer, manager of case)? Give summary @ -No Was smoking cessation discussed for >3mins.? @ -No Was critical care preformed (if so, how long)? @ -No Were there social determinants of health that impacted care today? How? (Homelessness, low income, unemployed, alcoholism, drug addiction, transportation, low edu. Level, literacy, decrease access to med. care, [facility], rehab)? @ -No Was there de-escalation of care discussed even if they declined (Discuss DNR or withdrawal of care, Hospice)? DNR status @ -No What co-morbidities impacted this encounter? (DM, HTN, Smoking, COPD, CAD, Cancer, CVA, ARF, Chemo, Hep., AIDS, mental health diagnosis, sleep apnea, morbid obesity)? @ -None Was patient admitted / discharged? Hospital course, mention meds given and route, prescriptions, significant lab abnormalities, going to OR and other pertinent info. @ -77-year-old female presenting with chief complaint of head injury. There is a 4 cm laceration to the scalp. No loss of consciousness or blood thinners. Patient has been drinking alcohol this evening. CT is negative for acute intracranial process or cervical spine fracture. Laceration is repaired using hernando. Educated on wound care and signs of infection. Follow-up with PCP. Report back to ER with any new or worsening symptoms. Discussed return parameters and answered all questions. Patient conveyed verbal understanding and agreed to the plan. I discussed this case in detail with my attending Dr. Renae Undiagnosed new problem with uncertain prognosis? @ -No Drug Therapy requiring intensive monitoring for toxicity (Heparin, Nitro, Insulin, Cardizem)? @ -No Were any procedures done? @ -Laceration repair Diagnosis/symptom? @ -Laceration of the scalp Acute, or Chronic, or Acute on Chronic? @ -Acute Uncomplicated (without systemic symptoms) or Complicated (systemic symptoms)? @ -Uncomplicated Side effects of treatment? @ -No Exacerbation, Progression, or Severe Exacerbation? @ -No Poses a threat to life or bodily function? How? (Chest pain, [place], [place], pneumonia, PE, COPD, DKA, ARF, appy, cholecystitis, CVA, Diverticulitis, Homicidal, Suicidal, threat to staff... and all critical care pts) @ -No Disposition Clinical Impression: Scalp laceration Disposition: HOME SELF-CARE Condition: Good Instructions (If sedation given, give patient instructions): Head Injury (ED), Staple Care (ED) Additional Instructions: Follow-up with PCP. Report back to ER with any new or worsening symptoms. Hernando may be removed in 7-10 days. Do not get the wound wet for 24 hours. Monitor for signs of infection, including but not limited to redness, swelling, warmth, tenderness, discharge. Is patient prescribed a controlled substance at d/c from ED?: No Referrals: Mary Duran MD [Primary Care Provider] - 1-2 days Time of Disposition: 23:47
[2023-03-22 23:54] VITALS: BP 148/84; PULSE 78
== END 2023-03-23 00:19 | disposition home or self-care (01) ==
LOC: EC 21:58
DX: S01.01XA Laceration without foreign body of scalp, initial encounter (principal); M47.812 Spondylosis without myelopathy or radiculopathy, cervical region; M48.02 Spinal stenosis, cervical region; J44.9 Chronic obstructive pulmonary disease, unspecified; I10 Essential (primary) hypertension; F41.9 Anxiety disorder, unspecified; F32.A Depression, unspecified; Z79.82 Long term (current) use of aspirin; Z79.899 Other long term (current) drug therapy; Z91.041 Radiographic dye allergy status; Z91.018 Allergy to other foods; Z23 Encounter for immunization; W18.30XA Fall on same level, unspecified, initial encounter
CPT/HCPCS: 72125; 70450; 90715; 99284; 90471; 12002; J2001